=== PATIENT | female | born 1965 | race Caucasian/White ===

== ENCOUNTER 2019-11-08 08:31 | Outpatient (CLI) | payer OTHER, SELFPAY ==
--- NOTE | 2019-11-26 08:42 | WPDHOLTEREM ---
Holter/Event Monitor Holter/Event Monitor Date of procedure: 11/08/19 Procedure Type: 30 day event monitor Indications: Palpitations Conclusion: 1. 10 day event monitor between 11/08/19-11/26/19. There are 22 available transmissions for analysis. 2. Predominant rhythm is sinus rhythm. HR range 41-139 bpm; average HR 75 bpm. 3. There are occasional premature supraventricular complexes with total burden 1%. No supraventricular tachycardia. 4. There are occasional premature ventricular complexes with total burden 1%. There is 1 episode of ventricular tachycardia at 107 bpm lasting 6 beats on 11/13/19 at 22:24. 5. No significant pauses greater than 2 seconds. 6. Patient reports 8 episodes of symptoms of lightheadedness, heart racing, dizziness and symptoms other than listed which demonstrate sinus rhythm, HR range 67-103 bpm with episodes of premature ventricular complexes each time.
== END 2019-11-08 08:32 | disposition home or self-care (01) ==
PROVIDERS: PCP Internal Medicine; Visit Provider Internal Medicine
DX: R00.2 Palpitations (principal)
CPT/HCPCS: 99199

== ENCOUNTER 2019-11-29 14:26 | Outpatient (CLI) | payer OTHER, SELFPAY ==
--- NOTE | ~2019-11-29 | MM_ITS ---
EXAMINATION: MM screening [facility] BI w francesca HISTORY: Screening mammogram TECHNIQUE: Craniocaudal and mediolateral oblique 3-D tomosynthesis images were obtained and synthetic 2-D images were generated. CAD analysis was submitted and interpreted. COMPARISON: 09/14/2018 postbiopsy mammogram 08/31/2018 diagnostic bilateral digital mammogram 01/12/2016 bilateral digital BREAST PARENCHYMAL COMPOSITION: The breasts are heterogeneously dense, which may obscure small masses . FINDINGS: There is a biopsy marker on the left. Occasional benign calcifications. There is no evidenc e of suspicious mass, calcification, or architectural distortion to suggest malignancy in either [address]. There has been no suspicious interval change. IMPRESSION: 1. No mammographic evidence of malignancy. 2. Recommend routine screening mammography in one year. BI-RADS Category 2: Benign finding(s). Reviewed, dictated and finalized at location A.
== END 2019-11-29 14:27 | disposition home or self-care (01) ==
LOC: CHSIMG 14:27
PROVIDERS: PCP Internal Medicine; Visit Provider Internal Medicine
DX: Z12.31 Encounter for screening mammogram for malignant neoplasm of breast (principal); I47.2 Ventricular tachycardia; I10 Essential (primary) hypertension
CPT/HCPCS: 77063; 77067; 93306

== ENCOUNTER 2021-02-05 09:01 | Outpatient (CLI) | payer OTHER, SELFPAY ==
--- NOTE | ~2021-02-05 | MM_ITS ---
EXAMINATION: MM screening [facility] BI w francesca HISTORY: Screening mammogram TECHNIQUE: Craniocaudal and mediolateral oblique 3-D tomosynthesis images were obtained and synthetic 2-D images were generated. CAD analysis was submitted and interpreted. COMPARISON: 11/29/2019, 08/31/2018, 01/12/2016 BREAST PARENCHYMAL COMPOSITION: The breasts are heterogeneously dense, which may obscure small masses . FINDINGS: There is no evidence of suspicious mass, calcification, or architectural distortion to sugg est malignancy in either breast. There has been no suspicious interval change. IMPRESSION: 1. No mammographic evidence of malignancy. 2. Recommend routine screening mammography in one year. BI-RADS Category 1: Negative Reviewed, dictated and finalized at location A.
== END 2021-02-05 09:02 | disposition home or self-care (01) ==
LOC: CHSIMG 09:02
PROVIDERS: PCP Internal Medicine; Visit Provider Internal Medicine
DX: Z12.31 Encounter for screening mammogram for malignant neoplasm of breast (principal)
CPT/HCPCS: 77063; 77067

== ENCOUNTER 2021-07-20 08:17 | Outpatient (CLI) | payer OTHER, SELFPAY ==
--- NOTE | ~2021-07-20 | DEXA_ITS ---
Bone Density Report Name: IMELDA HUSAIN Age: 56 Sex: Female Ethnicity: White Date of : 1965 Indication: postmenopausal; screening for osteoporosis; hysterectomy; Referring Provider: Edu Miller Study: Bone densitometry was performed. Exam Date: July 20, 2021 Accession number: [id number] Bone Density: Region BMD T-score Z-score Classification AP Spine(L1-L4) 0.991 -0.5 0.8 Normal Femoral Neck (Left) 0.822 -0.2 0.9 Normal Total Hip (Left) 1.062 1.0 1.8 Normal Femoral Neck (Right) 0.690 -1.4 -0.2 Osteopenia Total Hip (Right) 1.018 0.6 1.5 Normal Femoral Neck Mean 0.756 -0.8 0.4 Normal Total Hip Mean 1.040 0.8 1.6 Normal World Health Organization criteria for BMD impression classify patients as: Normal (T-score at or above -1.0), Osteopenia (T-score between -1.0 and -2.5), or Osteoporosis (T-score at or below -2.5). 10-year Fracture Risk(1): Major Osteoporotic Fracture 7.2% Hip Fracture 0.5% Reported Risk Factors: [place] (), Neck BMD=0.690, BMI=27.5 (1) FRAX(R) Version 3.08. Fracture probability calculated for an untreated patient. Fracture probability may be lower if the patient has received treatment. Clinical Information Provided by Patient: Has the following medical conditions: Hysterectomy Patient maximum height was 63 Menopause Age: 38 No regular weight bearing exercise Does not regularly consume dairy products Drinks caffeinated beverages Onset of menses at age 10 Number of children 2 Impression: The patient has low bone mass, based on the Right Femoral Neck T-score. Discussion: BONE DENSITY IS LOW AT ONE OR MORE SKELETAL SITES. This patient's lowest T-score is low at one or more skeletal sites. It meets the World Health Organization's (WHO) criteria for ?low bone mass? (T-score between -1.0 and -2.5). The patient's 10-year risk of fracture as calculated by FRAX is less than the threshold where pharmacological therapy is recommended by the National Osteoporosis Foundation (NOF). However, all treatment decisions require clinical judgment and consideration of individual patient factors, including patient preferences, comorbidities, previous drug use, risk factors not captured in the FRAX model (e.g., frailty, falls, vitamin D deficiency, increased bone turnover, interval significant decline in bone density) and possible under or overestimation of fracture risk by FRAX. The patient should follow a healthful lifestyle (good nutrition with adequate calcium and vitamin D, and appropriate weight-bearing exercise). Follow-Up: Consider repeating this study in 2 to 3 years to reassess this patient's status, or sooner if there is some new clinical indication. Reported by: Dr. Angel Ch on 07/20/2021 8:39:00 AM.
== END 2021-07-20 08:18 | disposition home or self-care (01) ==
LOC: CHSIMG 08:18
PROVIDERS: PCP Internal Medicine; Visit Provider Internal Medicine
DX: M81.0 Age-related osteoporosis without current pathological fracture (principal)
CPT/HCPCS: 77080

== ENCOUNTER 2021-07-27 11:41 | Emergency (ER) | payer OTHER, SELFPAY ==
--- NOTE | ~2021-07-27 | XR_ITS ---
EXAMINATION: XR chest 2V DATE: 07/27/2021 13:45 INDICATION: Nausea, vomiting, diarrhea TECHNIQUE: Frontal and lateral views of the chest are obtained COMPARISON: None available FINDINGS: The lungs are free of acute opacities. There is no pleural effusion or pneumothorax. The ca rdiomediastinal silhouette is normal. There is mild thoracic spondylosis. Surgical clips in the right upper quadrant are likely from prior cholecystectomy. IMPRESSION: 1. No acute cardiopulmonary abnormality. Reviewed, dictated and finalized at location A.
--- NOTE | ~2021-07-27 | CT_ITS ---
EXAMINATION: CT abdomen pelvis w con DATE: 07/27/2021 13:38 INDICATION: Nausea and vomiting. TECHNIQUE: Computed tomography (CT) of the abdomen and pelvis was performed with 100 mL Omnipaque 350 intravenous contrast. Automated exposure control and iterative reconstruction technique were employe d. The dose-length product was 503.13 mGy-cm. COMPARISON: None. FINDINGS: The visualized portions of the lung bases demonstrate mild atelectasis in right lower lobe. A calcified right lung nodule is consistent with old granulomatous disease. No pleural effusion. The heart size is normal. No pericardial effusion. The liver and spleen are normal. There are changes of cholecystectomy. The pancreas and adrenal glands are normal. There is a 5 mm cyst in right kidney. L eft kidney is normal. The bladder is distended. There are no dilated loops of bowel. The appendix is normal. There are no pathologically enlarged lymph nodes. There is no free intraperitoneal fluid. The re is mild thoracic spondylosis and moderate lumbar spondylosis. IMPRESSION: 1. No etiology for the patient's symptoms. Reviewed, dictated and finalized at location A.
--- NOTE | 2021-07-27 12:11 | ECG_ITS ---
Measurements Intervals Thorp Rate: 66 P: 13 WA: 145 QRS: 28 QRSD: 93 T: 29 QT: 377 QTc: 395 Interpretive Statements SINUS RHYTHM WITH OCCASIONAL VENTRICULAR PREMATURE COMPLEXES NONSPECIFIC T-WAVE ABNORMALITY BORDERLINE ECG NO PREVIOUS ECG AVAILABLE FOR COMPARISON Electronically Signed On 07-27-2021 13:21:55 CDT by Lincoln Foss M.D.
[2021-07-27] MEDS: ONDANSETRON INJ 4 MG/2 ML VIAL IV PUSH ×2 (12:21→13:54)
[2021-07-27 12:22] VITALS: BP 152/95; PULSE 77; RESP 20; TEMP 36.8; O2SAT 97
--- NOTE | 2021-07-27 12:42 | ED.DIZZY ---
HPI - Dizziness General Chief Complaint: Dizziness Stated Complaint: Vomiting/Dizzy/headache Time Seen by Provider: 07/27/21 13:50 Source: patient and family Mode of arrival: wheelchair History of Present Illness HPI Narrative: this is a 56-year-old female with history of bipolar disease presents from her doctor's office with episodes of nausea vomiting and dizziness, denies any diarrhea or constipation there is no dysuria no hematuria no fever chills no shortness of breath or chest pain. Patient feels dizzy with no syncopal episode no blurry vision and mild headache. MD elicited complaint: dizziness Onset (ago): hour(s) Timing: sudden onset Severity: moderate Description: sense of movement Context: anxiety Relieving factors: remaining still Associated symptoms: nausea and vomiting Related Data Home Medications Medication Instructions Recorded Confirmed bupropion HCl 150 mg PO DAILY 07/27/21 07/27/21 divalproex 250 mg PO BID 07/27/21 07/27/21 levothyroxine 100 mcg PO DAILY 07/27/21 07/27/21 lisinopril 10 mg PO DAILY 07/27/21 07/27/21 pravastatin 40 mg PO DAILY 07/27/21 07/27/21 pregabalin 50 mg PO BID 07/27/21 07/27/21 trazodone 50 mg PO HS 07/27/21 07/27/21 Allergies Allergy/AdvReac Type Severity Reaction Status Date / Time No Known Allergies Allergy Verified 07/27/21 12:32 Review of Systems Review of Systems: All systems reviewed & are unremarkable except as noted in HPI and below PMFSH Past Medical History Medical History Bipolar disease during Family History Family History Other Diabetes mellitus Hypertension Exam Const: General: no acute distress Orientation/consciousness: patient oriented x3 HENMT: Head: normal to inspection Eyes: Conjunctivae: conjunctivae normal Pupils: Equal, round and reactive pupils present Direct Ophthalmoscopy: no photophobia Neck: Neck: normal visual inspection, no lymphadenopathy and no meningeal signs Chest: Chest palpation & inspection: normal inspection of the chest Resp: Effort & Inspection: normal respiratory effort Auscultation: clear to auscultation bilaterally Cardio: Rate: regular rate Rhythm: regular rhythm GI: Auscultation: normal bowel sounds : General: Yes no CVA tenderness Urinary Catheter: Urinary Catheter: patent and draining Back/Spine/Pelvis: Back: no CVA tenderness Skin: General skin exam: normal color Rashes: no rashes Neuro: General: patient oriented x3, moves all extremities, no meningeal signs and no focal motor deficits Extrem: General: normal to inspection and no pedal edema Psych: Affect: Anxious affect present Course Course Emergency Course: patient had labs and x-rays along with CT scan of abdomen that we reviewed with patient, the patient was started on IV fluids given Zofran and meclizine and after reassessment the patient's symptoms have improved. Vital Signs Vital signs: Vital Signs Temperature 36.8 C 07/27/21 12:22 Pulse Rate 77 07/27/21 12:22 Respiratory Rate 20 07/27/21 12:22 Blood Pressure 152/95 H 07/27/21 12:22 Pulse Oximetry 97 07/27/21 12:22 Temperature 36.8 C 07/27/21 12:22 Pulse Rate 77 07/27/21 12:22 Respiratory Rate 20 07/27/21 12:22 Blood Pressure 152/95 H 07/27/21 12:22 Pulse Oximetry 97 07/27/21 12:22 MDM - Dizziness Lab Data Result diagrams: 07/27/21 12:15 07/27/21 12:15 Labs: Lab Results 07/27/21 07/27/21 07/27/21 Range/Units 12:15 12:15 14:07 WBC 6.1 (4.8-10.8) K/mm3 RBC 4.81 (4.20-5.40) M/mm3 Hgb 14.7 (12.0-15.0) g/dL Hct 43.4 (35.0-49.0) % MCV 90.2 (78.0-102.0) fL MCH 30.6 (27.0-31.0) pg MCHC 33.9 (32.0-36.0) g/dL RDW 11.6 (11.6-14.4) % Plt Count 281 (150-420) K/mm3 MPV 11.0 (9.2-11.8) fl Immature Gran % (Auto) 0.3 H (0.0-0.0)
[2021-07-27 12:46] LABS: Basophils Absolute Auto 0.04 K/mm3 (0.00-0.10); Basophils Percent Auto 0.7 % (0.0-1.0); Eosinophils Absolute Auto 0.12 K/mm3 (0.02-0.50); Hematocrit 43.4 % (35.0-49.0); Hemoglobin 14.7 g/dL (12.0-15.0); Immature Granulocyte Absolute 0.02 K/mm3 (0.00-0.00); Immature Granulocyte Percent A 0.3 % (0.0-0.0); Lymphocytes Absolute Auto 2.26 K/mm3 (1.10-4.50); Lymphocytes Percent Auto 36.8 % (18.0-42.0); Mean Corpuscular HGB Conc 33.9 g/dL (32.0-36.0); Mean Corpuscular Hemoglobin 30.6 pg (27.0-31.0); Mean Corpuscular Volume 90.2 fL (78.0-102.0); Monocytes Absolute Auto 0.68 K/mm3 (0.10-0.90); Monocytes Percent Auto 11.1 % (2.0-11.0); Neutrophils Percent Auto 49.1 % (50.0-70.0); Platelet Count Result 281 K/mm3 (150-420); Red Blood Count 4.81 M/mm3 (4.20-5.40); Red Cell Distribution Width 11.6 % (11.6-14.4); White Blood Count 6.1 K/mm3 (4.8-10.8)
[2021-07-27] MEDS: SODIUM CHLORIDE 0.9% IV 1,000 ML 999 ML IV CONT (12:48)
[2021-07-27] MEDS: MECLIZINE HCL 25 MG TABLET PO (12:49)
[2021-07-27 13:03] LABS: Alanine Aminotransferase 29 U/L (14-59); Alkaline Phosphatase 60 U/L (46-116); Anion Gap 13 mmol/L (8-16); Aspartate Amino Transferase 21 U/L (15-37); Bilirubin,Total 0.4 mg/dL (0.00-1.00); Blood Urea Nitrogen 9 mg/dL (7-18); Calcium 9.2 mg/dL (8.5-10.1); Carbon Dioxide 25 mmol/L (21-32); Chloride 102 mmol/L (98-108); Estimated CRCL calculation 67 ml/min; Estimated Glomerular Filt Rate > 60; Glucose 85 mg/dL (70-99); Lipase 91 U/L (73-393); Osmolality Calculated 287 mOsm/kg (285-295); Potassium 3.6 mmol/L (3.5-5.1); Sodium 140 mmol/L (136-145); Total Protein 7.7 g/dL (6.4-8.2)
[2021-07-27] MEDS: KETOROLAC 30 MG/ML VIAL (*BKC) IV PUSH (13:53)
[2021-07-27 14:10] LABS: Appearance Urine Clear (Clear); Bilirubin Urine Negative (Negative); Color Urine Light Yellow (Yellow); Glucose Urine UA Negative (Negative); Ketones Urine Negative (Negative); Leukocyte Esterase Ur Negative (Negative); Nitrate Urine Negative (Negative); Protein Urine Negative (Negative); Specific Grav Ur <= 1.005 (1.010-1.020); Urobilinogen Urine 0.2 mg/dL (0.2-1.0); pH Urine 6.5 (5.0-8.0)
[2021-07-27 14:16] LABS: Add Urine Microscopic? YES; Bacteria Urine None seen /hpf; Blood Urine Trace-lysed (Negative); RBC Urine None seen /hpf (0-2); Squamous Epithelial Cell Urine Rare /hpf (Few); WBC Urine None seen /hpf (0-3)
[2021-07-27 15:20] VITALS: BP 146/80; PULSE 66; RESP 20; TEMP 36.8; O2SAT 97
== END 2021-07-27 15:39 | disposition home or self-care (01) ==
PROVIDERS: Emergency Provider Emergency Medicine; PCP Internal Medicine
DX: R42 Dizziness and giddiness (principal); J01.10 Acute frontal sinusitis, unspecified; R11.2 Nausea with vomiting, unspecified
CPT/HCPCS: 36415; 71046; 74177; 80053; 81001; 83690; 85025; 87040; 93005; 96361; 96374; 96375; 96376; 99284; A9270; J1885; J2405; J7030; Q9967

== ENCOUNTER 2022-02-08 07:55 | Outpatient (CLI) | payer OTHER, SELFPAY ==
--- NOTE | ~2022-02-08 | MM_ITS ---
EXAMINATION: MM screening [facility] BI w francesca HISTORY: Screening TECHNIQUE: Craniocaudal and mediolateral oblique 3-D tomosynthesis images were obtained and synthetic 2-D images were generated. CAD analysis was submitted and interpreted. COMPARISON: Comparison to multiple prior studies sequentially, with oldest reviewed study dated 08/2014. BREAST PARENCHYMAL COMPOSITION: The breasts are heterogeneously dense, which may obscure small masses FINDINGS: There is no evidence of suspicious mass, calcification, or architectural distortion to sugg est malignancy in either breast. There has been no suspicious interval change. IMPRESSION: 1. No mammographic evidence of malignancy. 2. Recommend routine screening mammography in one year. BI-RADS Category 1: Negative Reviewed, dictated and finalized at location A.
== END 2022-02-08 07:56 | disposition home or self-care (01) ==
LOC: CHSIMG 07:57
PROVIDERS: PCP Internal Medicine; Visit Provider Internal Medicine
DX: Z12.31 Encounter for screening mammogram for malignant neoplasm of breast (principal)
CPT/HCPCS: 77063; 77067

== ENCOUNTER 2022-06-07 12:23 | Outpatient (CLI) | payer BC, SELFPAY ==
[2022-06-07 12:41] LABS: Basophils Absolute Auto 0.03 K/mm3 (0.00-0.10); Basophils Percent Auto 0.6 % (0.0-1.0); Eosinophils Absolute Auto 0.05 K/mm3 (0.02-0.50); Hematocrit 40.5 % (35.0-49.0); Hemoglobin 13.5 g/dL (12.0-15.0); Immature Granulocyte Absolute 0.01 K/mm3 (0.00-0.00); Immature Granulocyte Percent A 0.2 % (0.0-0.0); Lymphocytes Absolute Auto 1.98 K/mm3 (1.10-4.50); Lymphocytes Percent Auto 37.9 % (18.0-42.0); Mean Corpuscular HGB Conc 33.3 g/dL (32.0-36.0); Mean Corpuscular Hemoglobin 30.5 pg (27.0-31.0); Mean Corpuscular Volume 91.6 fL (78.0-102.0); Mean Platelet Volume 10.5 fl (9.2-11.8); Monocytes Absolute Auto 0.46 K/mm3 (0.10-0.90); Monocytes Percent Auto 8.8 % (2.0-11.0); Neutrophils Absolute Auto 2.7 K/mm3 (1.7-7.2); Neutrophils Percent Auto 51.5 % (50.0-70.0); Platelet Count Result 241 K/mm3 (150-420); Red Blood Count 4.42 M/mm3 (4.20-5.40); Red Cell Distribution Width 11.9 % (11.6-14.4); White Blood Count 5.2 K/mm3 (4.8-10.8)
[2022-06-07 12:57] LABS: Hemoglobin A1C 5.5 % (<5.7)
[2022-06-07 13:31] LABS: Alanine Aminotransferase 14 U/L (14-59); Albumin Level 3.9 g/dL (3.4-5.0); Alkaline Phosphatase 62 U/L (46-116); Anion Gap 7 mmol/L (8-16); Aspartate Amino Transferase 11 U/L (15-37); Bilirubin,Total 0.6 mg/dL (0.00-1.00); Blood Urea Nitrogen 13 mg/dL (7-18); Carbon Dioxide 30 mmol/L (21-32); Chloride 102 mmol/L (98-108); Cholesterol 196 mg/dL (0-200); Estimated Glomerular Filt Rate > 60; Folic Acid 19.4 ng/mL (8.6->20); Glucose 90 mg/dL (70-99); HDL Direct 66 mg/dL (40-60); LDL Cholesterol Calculated 97 mg/dL (<130); Osmolality Calculated 288 mOsm/kg (285-295); Potassium 4.1 mmol/L (3.5-5.1); Sodium 139 mmol/L (136-145); Total Protein 7.2 g/dL (6.4-8.2); Triglycerides 164 mg/dL (0-150); Vitamin B12 545 pg/mL (193-986)
[2022-06-07 13:33] LABS: Thyroid Stimulating Hormone Reflex 0.44 u/IU/mL (0.36-3.74)
[2022-06-09 11:42] LABS: Valproic Acid 61.9 mg/L (50.0-100.0)
[2022-06-09 13:31] LABS: Insulin Level Total 4.6 uIU/mL (<=19.6)
[2022-06-10 17:23] LABS: Vitamin D 25 Hydroxy 33 ng/mL (30-100)
== END 2022-06-07 12:24 | disposition home or self-care (01) ==
LOC: CHSLAB 12:28
PROVIDERS: PCP Internal Medicine; Visit Provider Psychiatry & Neurology Psychiatry
DX: F10.20 Alcohol dependence, uncomplicated (principal); E78.5 Hyperlipidemia, unspecified; E53.8 Deficiency of other specified B group vitamins; E55.9 Vitamin D deficiency, unspecified; E03.9 Hypothyroidism, unspecified; Z79.899 Other long term (current) drug therapy
CPT/HCPCS: 36415; 80053; 80061; 80164; 82306; 82607; 82746; 83036; 83525; 84443; 85025

== ENCOUNTER 2022-09-05 11:22 | Outpatient (CLI) | payer BC, SELFPAY ==
--- NOTE | ~2022-09-05 | XR_ITS ---
EXAMINATION: XR hand LT min 3V DATE: 09/05/2022 11:39 INDICATION: Left hand third digit cellulitis and pain. TECHNIQUE: 3 views of left hand were obtained. COMPARISON: None. FINDINGS: Bone alignment is normal. No fracture. There is mild osteoarthrosis of first carpometacarpa l joint, second metacarpophalangeal joint, and some of the interphalangeal joints. IMPRESSION: 1. No evidence of osteomyelitis. 2. Polyarticular osteoarthritis. Reviewed, dictated and finalized at location A.
== END 2022-09-05 11:23 | disposition home or self-care (01) ==
LOC: CHSIMG 11:24
PROVIDERS: PCP Internal Medicine; Visit Provider Internal Medicine
DX: L03.012 Cellulitis of left finger (principal); M19.042 Primary osteoarthritis, left hand
CPT/HCPCS: 73130

== ENCOUNTER 2022-09-09 06:50 | Outpatient (CLI) | payer BC, SELFPAY ==
--- NOTE | ~2022-09-09 | MR_ITS ---
MRI of the left hand CLINICAL HISTORY: Cellulitis of left third finger TECHNIQUE: Axial proton-density, proton-density fat-sat, and T1 fat-sat images, coronal proton-densit y and proton-density fat-sat images, and sagittal proton-density and proton-density fat-sat images we re performed. Following intravenous administration of 12 cc MultiHance gadolinium, T1-weighted fat-sa t imaging was performed in the axial, coronal, and sagittal planes. FINDINGS: Bone marrow signals are unremarkable. No fracture, marrow edema, or evidence for osteitis. Joint spaces appear intact. No joint effusion seen. Visualized collateral ligaments appear intact. Flexor and extensor tendons are intact. Visualized muscles demonstrate normal signal intensity. There is minimal soft tissue edema about the distal third digit flexor tendon, with mild postcontrast enha ncement. No abscess. IMPRESSION: Findings consistent with cellulitis/soft tissue infection predominantly at the distal, flexor aspect of the third digit. No abscess or osteomyelitis. Reviewed, dictated and finalized at [facility].
== END 2022-09-09 06:51 | disposition home or self-care (01) ==
LOC: CHSIMG 06:51
PROVIDERS: PCP Internal Medicine; Visit Provider Internal Medicine
DX: L03.012 Cellulitis of left finger (principal)
CPT/HCPCS: 73220; A9577

== ENCOUNTER 2023-02-10 08:17 | Outpatient (CLI) | payer BC, SELFPAY ==
--- NOTE | ~2023-02-10 | MM_ITS ---
EXAMINATION: MM screening [facility] BI w francesca HISTORY: Screening mammogram TECHNIQUE: Craniocaudal and mediolateral oblique 3-D tomosynthesis images were obtained and synthetic 2-D images were generated. CAD analysis was submitted and interpreted. COMPARISON: 02/08/2022, 02/05/2021, 11/29/2019 bilateral screening mammogram examinations BREAST PARENCHYMAL COMPOSITION: The breasts are heterogeneously dense, which may obscure small masses . FINDINGS: There are 2 biopsy markers on the left; history of prior benign left breast biopsy. Occasional benign calcifications. Stable mild fibroglandular asymmetry. There is no evidence of suspi cious mass, calcification, or architectural distortion to suggest malignancy in either breast. There has been no suspicious interval change. IMPRESSION: 1. No mammographic evidence of malignancy. 2. Recommend routine screening mammography in one year. BI-RADS Category 2: Benign finding(s). Reviewed, dictated and finalized at location A.
== END 2023-02-10 08:18 | disposition home or self-care (01) ==
LOC: CHSIMG 08:19
PROVIDERS: PCP Internal Medicine; Visit Provider Internal Medicine
DX: Z12.31 Encounter for screening mammogram for malignant neoplasm of breast (principal)
CPT/HCPCS: 77063; 77067

== ENCOUNTER 2023-03-10 08:26 | Outpatient (CLI) | payer BC, SELFPAY ==
[2023-03-13 17:51] LABS: Valproic Acid 57.3 mg/L (50.0-100.0)
== END 2023-03-10 08:27 | disposition home or self-care (01) ==
LOC: CHSLAB 08:31
PROVIDERS: PCP Internal Medicine
DX: Z79.899 Other long term (current) drug therapy (principal)
CPT/HCPCS: 36415; 80164

== ENCOUNTER 2023-11-17 01:49 | Day surgery (SDC) | payer BC, SELFPAY ==
[2023-11-02 12:57] VITALS: BMI 28.6
[2023-11-17 09:26] VITALS: BP 139/73; PULSE 78; RESP 18; TEMP 36.1; O2SAT 100
[2023-11-17] MEDS: LACTATED RINGERS 1,000 ML 150 ML IV CONT (09:37)
--- NOTE | 2023-11-17 10:10 | WPDANESEPPF ---
Anes - Initial Pre Proc Eval Procedure: Operation Date: 11/17/23 10:30 Proposed Procedures p Screening Colonoscopy - Edison Styles DO Date/Time: 11/17/23 10:10 Surgeon: Edison Styles DO Pre Op Diagnosis: Screening for malignant neoplasm of colon Patient Data Age: 58 Gender: F Height: 1.57 m Weight: 69.4 kg Last Vital Signs Temp 97 F L 11/17/23 09:26 Pulse 78 11/17/23 09:26 Resp 18 11/17/23 09:26 BP 139/73 11/17/23 09:26 Pulse Ox 100 11/17/23 09:26 O2 Del Method Room Air 11/17/23 09:26 Allergies Allergy/AdvReac Type Severity Reaction Status Date / Time No Known Allergies Allergy Verified 11/17/23 09:24 Home Medications Medication Instructions Recorded Confirmed Type levothyroxine 100 mcg tablet 100 mcg PO DAILY 07/27/21 11/02/23 History lisinopril 10 mg tablet 10 mg PO DAILY 07/27/21 11/02/23 History pregabalin 50 mg capsule 50 mg PO BID 07/27/21 11/02/23 History ezetimibe 10 mg tablet 10 mg PO DAILY 11/02/23 11/02/23 History triamterene 37.5 37.5 tablet PO DAILY 11/02/23 11/02/23 History mg-hydrochlorothiazide 25 mg tablet Patient hx anesthesia problems: none Family hx anesthesia problems: none Results Review: All pre-operative results and documents have been reviewed as part of the pre-operative evaluation. FORMERLY [facility], 1928–1983 Past Medical History Medical History Bipolar disease during Family History Family History Other Diabetes mellitus Hypertension Social History Social History (System 08/22/23 @ 16:23 by Lucas Silver) Substance use: current Substance use type: marijuana Other substance usage details: medicinal marijuana Living arrangements: with family Spiritual care concerns: No Anes - Eval Final PreProcedure Day of Procedure 11/17/23 10:10 Patient weight: normal Heart: regular rate and rhythm Lungs: clear to auscultation Airway: Mallampati scale class II Neurological: alert and oriented Last oral intake: >/= 8 hours ASA classification: III Emergent: no Anesthetic plan: proceed Anesthesia type and monitoring: general GIVS and standard monitoring Results Review: All pre-operative results and documents have been reviewed as part of the pre-operative evaluation. Informed Consent: The patient's anesthetic plan and its attendant risks and benefits were discussed with the patient/family/POA. Questions were solicited and answers provided to the satisfaction of the patient/family/POA.
--- NOTE | 2023-11-17 10:44 | PM.IMHP ---
H&P: HPI History of Present Illness Date/Time: 11/17/23 10:44 Chief Complaint: screening for colorectal cancer Narrative: this is a 58-year-old woman who presents for colonoscopy. Her last colonoscopy was 10 years ago. She denies any hematochezia or melena. She denies any first-degree family members with colon cancer but had a great grandmother that had colon cancer. Review of Systems Review of Systems: All systems reviewed & are unremarkable except as noted in HPI and below Constitutional: Constitutional: Denies chills, Denies fever(s), Denies headache(s) and Denies weight loss Eyes: Eyes: Denies change in vision ENT: Denies dizziness, Denies headache(s), Denies neck mass and Denies throat swelling Cardiovascular: Cardiovascular: Denies chest pain, Denies lightheadedness and Denies dyspnea Respiratory: Respiratory: Denies cough, Denies dyspnea and Denies wheezing Gastrointestinal: Gastrointestinal: Denies abdominal pain, Denies change in bowel habits, Denies nausea and Denies vomiting Genitourinary: Genitourinary: Denies hematuria and Denies dysuria Musculoskeletal: Musculoskeletal: Reports as per HPI Integumentary/Breasts: Skin/Breast: Reports as per HPI Neurologic: Denies dizziness and Denies headache(s) Allergic/Immunologic: Allergic/Immunologic: Denies throat swelling and Denies wheezing PMF Past Medical History Medical History Bipolar disease during Family History Family History Other Diabetes mellitus Hypertension Social History Social History (System 08/22/23 @ 16:23 by Lucas Silver) Substance use: current Substance use type: marijuana Other substance usage details: medicinal marijuana Living arrangements: with family Spiritual care concerns: No Meds Home Medications and Allergies Home Medications Medication Instructions Recorded Confirmed Type levothyroxine 100 mcg tablet 100 mcg PO DAILY 07/27/21 11/02/23 History lisinopril 10 mg tablet 10 mg PO DAILY 07/27/21 11/02/23 History pregabalin 50 mg capsule 50 mg PO BID 07/27/21 11/02/23 History ezetimibe 10 mg tablet 10 mg PO DAILY 11/02/23 11/02/23 History triamterene 37.5 37.5 tablet PO DAILY 11/02/23 11/02/23 History mg-hydrochlorothiazide 25 mg tablet Allergies Allergy/AdvReac Type Severity Reaction Status Date / Time No Known Allergies Allergy Verified 11/17/23 09:24 Vital Signs Vital Signs - 24 hr 11/17/23 09:26 Temperature 36.1 C L Pulse Rate 78 Respiratory Rate 18 Blood Pressure 139/73 Pulse Oximetry 100 Oxygen Delivery Room Air Exam Const: General: no acute distress and alert Orientation/consciousness: patient oriented x3 HENMT: Head: normocephalic and atraumatic Ears: hearing grossly normal bilaterally Face/Nose/Sinus: Normal nares present Mouth: Yes Normal oral and palatal mucosa present Eyes: Periorbital: periorbital findings normal Sclera: sclerae normal EOM: EOMs intact bilaterally Neck: Neck: normal visual inspection, no lymphadenopathy and trachea midline Chest: Chest palpation & inspection: normal inspection of the chest Resp: Effort & Inspection: normal respiratory effort Auscultation: clear to auscultation bilaterally Cardio: Jugular venous distension: no JVD Rate: regular rate Rhythm: regular rhythm Heart sounds: S1 normal heart sound present and S2 normal heart sound present Peripheral pulses: Peripheral pulses 2+ throughout GI: Inspection: normal to inspection GI Palp: Yes Soft to palpation, No Tenderness to palpation present (GI), No Guarding due to palpation present (GI) and No Rebound tenderness present Percussion: Yes normal to percussion Auscultation: normal bowel sounds : General: Yes no CVA tenderness Back/Spine/Pelvis: Back: no CVA tenderness Neuro: General: patient oriented x3, no focal motor deficits and CN's II-XI
[2023-11-17 11:09] VITALS: BP 117/95; PULSE 68; RESP 20; O2SAT 100
[2023-11-17 11:19] VITALS: BP 99/44; PULSE 67; RESP 16; O2SAT 100
[2023-11-17 11:29] VITALS: BP 114/56; PULSE 60; RESP 16; O2SAT 100
== END 2023-11-17 11:45 | disposition home or self-care (01) ==
PROVIDERS: PCP Internal Medicine; Visit Provider Surgery
PROC: 0DJD8ZZ Inspection of Lower Intestinal Tract, Via Natural or Artificial Opening Endoscopic (ICD-10-PCS; CPT 45378; principal; 2023-11-17 10:30)
DX: Z12.11 Encounter for screening for malignant neoplasm of colon (principal); K57.30 Diverticulosis of large intestine without perforation or abscess without bleeding
CPT/HCPCS: 45378; J2704; J7120

== ENCOUNTER 2024-02-14 11:42 | Outpatient (CLI) | payer BC, SELFPAY ==
--- NOTE | ~2024-02-14 | MM_ITS ---
EXAMINATION: MM screening [facility] BI w francesca HISTORY: Screening TECHNIQUE: Craniocaudal and mediolateral oblique 3-D tomosynthesis images were obtained and synthetic 2-D images were generated. CAD analysis was submitted and interpreted. COMPARISON: Comparison to multiple prior studies sequentially, with oldest reviewed study dated 11/28. BREAST PARENCHYMAL COMPOSITION: Dense: The breasts are heterogeneously dense, which may obscure small masses FINDINGS: There is no evidence of suspicious mass, calcification, or architectural distortion to sugg est malignancy in either breast. There has been no suspicious interval change. IMPRESSION: 1. No mammographic evidence of malignancy. 2. Recommend routine screening mammography in one year. BI-RADS Category 1: Negative Reviewed, dictated and finalized at location B.
[2024-02-14 12:03] LABS: Basophils Absolute Auto 0.04 K/mm3 (0.00-0.10); Basophils Percent Auto 0.8 % (0.0-1.0); Eosinophils Absolute Auto 0.11 K/mm3 (0.02-0.50); Eosinophils Percent Auto 2.1 % (1.0-6.0); Hematocrit 39.5 % (35.0-49.0); Hemoglobin 13.5 g/dL (12.0-15.0); Immature Granulocyte Absolute 0.01 K/mm3 (0.00-0.00); Immature Granulocyte Percent A 0.2 % (0.0-0.0); Lymphocytes Percent Auto 37.9 % (18.0-42.0); Mean Corpuscular HGB Conc 34.2 g/dL (32-36); Mean Corpuscular Hemoglobin 30.2 pg (27.0-31.0); Mean Corpuscular Volume 88.4 fL (78.0-102.0); Monocytes Absolute Auto 0.66 K/mm3 (0.10-0.90); Monocytes Percent Auto 12.5 % (2.0-11.0); Neutrophils Absolute Auto 2.46 K/mm3 (1.70-7.20); Neutrophils Percent Auto 46.5 % (50.0-70.0); Platelet Count Result 312 K/mm3 (150-420); Red Blood Count 4.47 M/mm3 (4.20-5.40); Red Cell Distribution Width 11.9 % (11.6-14.4); White Blood Count 5.3 K/mm3 (4.8-10.8)
[2024-02-14 12:08] LABS: Add Urine Microscopic? YES; Appearance Urine Clear (Clear); Bilirubin Urine Negative (Negative); Blood Urine Negative (Negative); Color Urine Yellow (Yellow); Glucose Urine UA Negative (Negative); Ketones Urine Negative (Negative); Leukocyte Esterase Ur 1+ (Negative); Nitrate Urine Negative (Negative); Protein Urine Negative (Negative); Urobilinogen Urine 0.2 mg/dL (0.2-1.0); pH Urine 6.5 (5.0-8.0)
[2024-02-14 12:13] LABS: Hemoglobin A1C 5.6 % (<5.7)
[2024-02-14 12:16] LABS: RBC Urine None seen /hpf (0-2); Squamous Epithelial Cell Urine Few /hpf (Few); WBC Urine 0-3 /hpf (0-3)
[2024-02-14 12:17] LABS: Bacteria Urine Trace /hpf
[2024-02-14 13:27] LABS: Alanine Aminotransferase 24 U/L (14-59); Albumin Level 3.9 g/dL (3.4-5.0); Alkaline Phosphatase 79 U/L (46-116); Anion Gap 6 mmol/L (4-12); Aspartate Amino Transferase 20 U/L (15-37); Bilirubin,Total 0.6 mg/dL (0.00-1.00); Blood Urea Nitrogen 14 mg/dL (7-18); Calcium 9.5 mg/dL (8.5-10.1); Carbon Dioxide 31 mmol/L (21-32); Chloride 102 mmol/L (98-108); Cholesterol 226 mg/dL (0-200); Estimated Glomerular Filt Rate > 60; Free T3 2.64 pg/mL (2.18-3.98); Free T4 Free Thyroxine 1.24 ng/dL (0.76-1.46); Glucose 86 mg/dL (70-99); HDL Direct 57 mg/dL (40-60); LDL Cholesterol Calculated 138 mg/dL (<130); Osmolality Calculated 287 mOsm/kg (285-295); Sodium 139 mmol/L (136-145); Thyroid Stimulating Hormone 1.36 uIU/mL (0.36-3.74); Total Protein 7.3 g/dL (6.4-8.2); Triglycerides 155 mg/dL (0-150); Vitamin B12 773 pg/mL (193-986)
== END 2024-02-14 11:43 | disposition home or self-care (01) ==
PROVIDERS: PCP Internal Medicine; Visit Provider Internal Medicine
DX: I10 Essential (primary) hypertension (principal); E03.4 Atrophy of thyroid (acquired); E78.2 Mixed hyperlipidemia; I49.3 Ventricular premature depolarization; R73.01 Impaired fasting glucose; Z12.31 Encounter for screening mammogram for malignant neoplasm of breast
CPT/HCPCS: 36415; 77063; 77067; 80053; 80061; 81001; 82607; 83036; 84439; 84443; 84481; 85025

== ENCOUNTER 2024-07-06 07:49 | Outpatient (CLI) | payer OTHER, SELFPAY ==
--- NOTE | ~2024-07-06 | DEXA_ITS ---
Bone Density Report Name: IMELDA HUSAIN Age: 58 Sex: Female Ethnicity: White Date of : 1965 Indication: postmenopausal; screening for osteoporosis; hysterectomy; Referring Provider: Edu Miller Study: Bone densitometry was performed. Exam Date: July 06, 2024 Accession number: [id number] Bone Density: Region BMD T-score Z-score Classification AP Spine(L1-L4) 0.979 -0.6 0.9 Normal Femoral Neck (Left) 0.717 -1.2 0.1 Osteopenia Total Hip (Left) 0.993 0.4 1.4 Normal Femoral Neck (Right) 0.739 -1.0 0.3 Normal Total Hip (Right) 0.966 0.2 1.2 Normal Femoral Neck Mean 0.728 -1.1 0.2 Osteopenia Total Hip Mean 0.979 0.3 1.3 Normal World Health Organization criteria for BMD impression classify patients as: Normal (T-score at or above -1.0), Osteopenia (T-score between -1.0 and -2.5), or Osteoporosis (T-score at or below -2.5). 10-year Fracture Risk(1): Major Osteoporotic Fracture 7.5% Hip Fracture 0.5% Reported Risk Factors: [place] (), Neck BMD=0.717, BMI=27.8 (1) FRAX(R) Version 3.08. Fracture probability calculated for an untreated patient. Fracture probability may be lower if the patient has received treatment. Previous Exams: Region Exam Age BMD T-score BMD Change BMD Change Date g/cm2 vs Baseline vs Previous AP Spine (L1-L4) 07/06/2024 58 0.979 -0.6 -0.012 (-1.2%) -0.012 (-1.2%) 07/20/2021 56 0.991 -0.5 Total Hip(Left) 07/06/2024 58 0.993 0.4 -0.069 (-6.5%) -0.069 (-6.5%) 07/20/2021 56 1.062 1.0 Total Hip(Right) 07/06/2024 58 0.966 0.2 -0.052 (-5.1%) -0.052 (-5.1%) 07/20/2021 56 1.018 0.6 *Denotes significance at 95% confidence level, LSC for AP Spine = 0.022 g/cm2, LSC for Total Hip = 0.027 g/cm2 Clinical Information Provided by Patient: Has used the following medications: Vitamin D, multi Has the following medical conditions: Hysterectomy Patient maximum height was 63 Menopause Age: 38 No regular weight bearing exercise Drinks caffeinated beverages Onset of menses at age 9 Number of children 2 Impression: The patient has low bone mass, based on the Left Femoral Neck T-score. The BMD for the Total Hip(Left) decreased, changing by -6.5% since the last DXA exam. The BMD for the Total Hip(Right) decreased, changing by -5.1% since the last DXA exam. Discussion: BONE DENSITY IS LOW AT ONE OR MORE SKELETAL SITES. This patient's lowest T-score is low at one or more skeletal sites. It meets the World Health Organization's (WHO) criteria for ?low bone mass? (T-score between -1.0 and -2.5). The patient's 10-year risk of fracture as calculated by FRAX is less than the threshold where pharmacological therapy is recommended by the National Osteoporosis Foundation (NOF). However, all treatment decisions require clinical judgment and consideration of individual patient factors, including patient preferences, comorbidities, previous drug use, risk factors not captured in the FRAX model (e.g., frailty, falls, vitamin D deficiency, increased bone turnover, interval significant decline in bone density) and possible under or overestimation of fracture risk by FRAX. The patient should follow a healthful lifestyle (good nutrition with adequate calcium and vitamin D, and appropriate weight-bearing exercise). Follow-Up: Consider repeating this study in 2 years to reassess this patient's status, or sooner if there is some new clinical indication. Reported by: DAVID on 07/06/2024 8:13:00 AM. Reviewed, dictated and finalized at location [facility]
--- OUTSIDE RECORDS SUMMARY | 2024-07-06 08:00 | XMS_ITS | Referral Summary ---
Author Organization [facility] D Address [address] [place] [id number] Care Team Providers Care Aerospace Physiological Technician Name Role Phone Edu Miller MD Primary Care Provider + [phone] Encounters Date Type Department Care Team Description 07/05/2024 12:35 PM PRODUCT MANAGER E [employer]CE Ancillary Procedure [facility] Orthopaedic Surgery [address] [place] [address] 6th [place] [address] [place] [address] Arrived 07/05/2024 12:45 PM PRODUCT MANAGER E [employer]ERCE Procedure visit [address] 6th [place] [address] [place] [address] Rafael Jackson MD Paresthesia and pain of extremity; Left low back pain, unspecified chronicity, unspecified whether sciatica present 06/05/2024 10:40 AM PRODUCT MANAGER E [employer]ERCE Office Visit [facility] Orthopaedic Surgery [address] [facility] [address] [place] [phone] Austen Epperson MD Trochanteric bursitis of both hips (Primary Dx); Lumbar radiculopathy; Left low back pain, unspecified chronicity, unspecified whether sciatica present 05/30/2024 2:00 PM PRODUCT MANAGER E [employer] Office Visit [facility] Orthopaedic Surgery [address] [facility] 2nd [address] [place] [phone] Sarah Ruvalcaba NP Lumbar radiculopathy (Primary Dx); Left low back pain, unspecified chronicity, unspecified whether sciatica present 04/15/2024 9:08 AM PRODUCT MANAGER E [employer] - 04/15/2024 11:59 PM PRODUCT MANAGER E [employer] Hospital Encounter [facility] [address] [address] [place], [place] [address] Left low back pain, unspecified chronicity, unspecified whether sciatica present; Lumbar radiculopathy Discharge Disposition: Discharge to home or self care 04/15/2024 9:08 AM PRODUCT MANAGER E [employer] - 04/15/2024 11:59 PM PRODUCT MANAGER E [employer] Hospital Encounter [facility] [id number] [address] [place], [place] [address] Left low back pain, unspecified chronicity, unspecified whether sciatica present; Lumbar radiculopathy Discharge Disposition: Discharge to home or self care 04/10/2024 2:45 PM PRODUCT MANAGER E [employer] - 04/10/2024 11:59 PM PRODUCT MANAGER E [employer] Hospital Encounter [id number] [address] [facility] [address] [place] [address] Isi Landa MD Left low back pain, unspecified chronicity, unspecified whether sciatica present; Lumbar radiculopathy Discharge Disposition: Discharge to home or self care from Last 3 Months Allergies No known active allergies Medications lisinopriL (PRINIVIL,ZESTR IL) 10 mg tablet Take 1 tablet (10 mg total) by mouth daily 0 Active levothyroxine (SYNTHROID) 100 mcg tablet Take 1 tablet (100 mcg total) by mouth speech therapist early intervention before breakfast 1 Active multivitamin with minerals (Multiple Vitamin-Mineral s) tablet Take 1 tablet by mouth daily Active UNABLE TO FIND Med Name: medical marijuana Active pregabalin (Lyrica) 50 mg capsuleIndicati ons:Fibromyalgi a Take 1 capsule (50 mg total) by mouth 2 (two) times a day 60 capsule 5 1 Active ezetimibe (ZETIA) 10 mg tablet 5 Active Active Problems Problem Noted Date Diagnosed Date Sporotrichosis 11/04/2022 Infection of finger 10/12/2022 Pain of left hand 09/28/2022 Encounter for cosmetic surgery 07/30/2020 Overview (07/30/2020): Added automatically from request for surgery [id number] Palpitations 12/07/2019 Premature ventricular contractions 12/07/2019 Immunizations Immunization Administration Dates Next Due Influenza, Quadrivalent, Split, Intramuscular ,02/14/2015 Influenza, Quadrivalent, Spl it, Preservative Free, Intramuscular 03/13/2020,02/23/2018 Influenza, Trivalent, IM (MDV) 01/06/2017 nDreams (J&J) SARS-CoV-2 Vaccination 08/07/2020 Pneumococcal Conjugate PCV 13 11/28/2014 Tdap 11/28/2014 ZOSTER Recombinant 03/13/2020,11/02/2019 Social History Tobacco Use Types Packs/Day Years Used Date Smoking Tobacco: Former Cigarettes 0 07/30/1999 - 07/30/2019 Smokeless Tobacco: Never Comments:casual smoker Comments Unknown Sex and Gender Information Value Date Recorded Sex Assigned at Not on file Legal Sex Female 6:24 AM PRODUCT MANAGER E [employer] Gender Identity Not on file Sexual Orientation Not on file Last Filed Vital Signs Vital Sign Reading Time Taken Comments Blood Pressure 122/68 10/29/2020 3:28 PM CDT Pulse 71 10/29/2020 3:28 PM CDT Temperature 36.8 C (98.3 F) 10/29/2020 3:28 PM CDT Respiratory Rate 14 10/29/2020 3:28 PM CDT Oxygen Saturation 96% 10/29/2020 3:28 PM CDT Inhaled Oxygen Concentration - - Weight 73.1 kg (161 lb 3.2 oz) 06/05/2024 10:46 AM PRODUCT MANAGER E [employer]ERCE Height 158 cm (5' 2.2 ) 06/05/2024 10:46 AM PRODUCT MANAGER E [employer]ERCE Body Mass Index 29.29 06/05/2024 10:46 AM PRODUCT MANAGER E [employer]CE Plan of Treatment Not on file Procedures Procedure Name Priority Date/Time Associated Diagnosis Comments POCUS SOFT TISSUE OF THE UPPER OR LOWER EXTREMITY Schedule Routine, Read Routine (OP Routine) 07/05/2024 12:33 PM PRODUCT MANAGER E [employer]ERCE Paresthesia and pain of extremity Left low back pain, unspecified chronicity, unspecified whether sciatica present MRI CERVICAL SPINE WO CONTRAST Schedule Routine, Read Routine (OP Routine) 04/15/2024 10:03 AM PRODUCT MANAGER E [employer]CE Left low back pain, unspecified chronicity, unspecified whether sciatica present Lumbar radiculopathy MRI THORACIC SPINE WO CONTRAST Schedule Routine, Read Routine (OP Routine) 04/15/2024 10:03 AM PRODUCT MANAGER E [employer]ERCE Left low back pain, unspecified chronicity, unspecified whether sciatica present Lumbar radiculopathy TRANSFORAMINAL EPIDURAL INJECTION LUMBAR SACRAL FIRST LEVEL BILATERAL Schedule Routine, Read Routine (OP Routine) 04/10/2024 4:11 PM PRODUCT MANAGER E [employer]CE Left low back pain, unspecified chronicity, unspecified whether sciatica present Lumbar radiculopathy HEPATITIS C ANTIBODY Routine 08/06/2020 2:16 PM CDT Elevated antinuclear antibody (ALFREDO) level from Last 3 Months or Most Recently Relevant to Health Maintenance Results * POCUS Soft Tissue of the Upper or Lower Extremity (07/05/2024 12:33 PM PRODUCT MANAGER E [employer]CE) Narrative [facility] - 07/05/2024 12:33 PM PRODUCT MANAGER E [employer]ERCE This procedure was performed and interpreted by the provider. Please refer to the provider's procedure/OR operative note for results. us Rafael Jackson MD POCUS ORDERABLES Final R esult [facility] * MRI Cervical Spine WO Contrast (04/15/2024 10:03 AM PRODUCT MANAGER E [employer]ERCE) Anatomical Region Laterality Modality Spine N/A Magnetic Resonan ce 04/15/2024 11:3 1 AM PRODUCT MANAGER E COMMERCE Impressions 04/15/2024 11:31 AM PRODUCT MANAGER E [employer]ERCE Cervical and thoracic spinal cord signal intensity is normal. There is no compressing lesions in the spinal canal compressing the spinal cord to explain myelopathy. There is minimal degenerative changes in the cervical and thoracic spine. Electronically signed by: Karin Kam M.D. Narrative 04/15/2024 11:31 AM PRODUCT MANAGER E [employer]CE EXAMINATION: 1. Magnetic resonance imaging (MRI) of the cervical spine without contrast 2. Magnetic resonance imaging (MRI) of the thoracic spine without contrast HISTORY: Myelopathy and loss of balance TECHNIQUE: Multiplanar multi-weighted MRI of the cervical spine was performed without intravenous contrast using the standard protocol. Multiplanar multi-weighted MRI of the thoracic spine was performed without intravenous contrast using the standard protocol. COMPARISON: Lumbar spine MRI 03/25/2024 FINDINGS: CERVICAL SPINE: The alignment of the cervical spine is normal. Vertebral bodies demonstrate normal signal intensity on all sequences. No acute fracture is identified. The craniocervical junction is normal. The visualized portions of the skull base and the posterior fossa are normal. The spinal cord demonstrates normal signal intensity on all sequences. Intervertebral disks have normal height and signal intensity. There is an annular fissure at C6-C7 in the setting of a small disc protrusion. No soft tissue abnormality is identified. Normal signal voids are present in the vertebral arteries. Axial images show a left central disc protrusion at C3-C4 which touches the left ventral nerve root. A small central disc protrusion is present at C6-C7 without significant canal or foraminal stenosis. No canal or foraminal stenosis is seen elsewhere in the cervical spine. THORACIC SPINE: The alignment of the thoracic spine is normal. Vertebral bodies demonstrate normal signal intensity on all sequences. There are no compression fractures. The spinal cord demonstrates normal signal intensity on all sequences. Intervertebral disks have normal height and signal intensity. Limited views of the chest and abdomen show no soft tissue abnormality. The aorta is normal. The disks are normal in configuration. There is moderate facet arthropathy on the right at T11-T12. Facets are otherwise normal. There is no neuroforaminal stenosis. There is a prominent left perineural cyst at T9-T10. There is no spinal canal stenosis. Procedure Note Karin Kam MD - 04/15/2024 EXAMINATION: 1. Magnetic resonance imaging (MRI) of the cervical spine without contrast 2. Magnetic resonance imaging (MRI) of the thoracic spine without contrast HISTORY: Myelopathy and loss of balance TECHNIQUE: Multiplanar multi-weighted MRI of the cervical spine was performed without intravenous contrast using the standard protocol. Multiplanar multi-weighted MRI of the thoracic spine was performed without intravenous contrast using the standard protocol. COMPARISON: Lumbar spine MRI 03/25/2024 FINDINGS: CERVICAL SPINE: The alignment of the cervical spine is normal. Vertebral bodies demonstrate normal signal intensity on all sequences. No acute fracture is identified. The craniocervical junction is normal. The visualized portions of the skull base and the posterior fossa are normal. The spinal cord demonstrates normal signal intensity on all sequences. Intervertebral disks have normal height and signal intensity. There is an annular fissure at C6-C7 in the setting of a small disc protrusion. No soft tissue abnormality is identified. Normal signal voids are present in the vertebral arteries. Axial images show a left central disc protrusion at C3-C4 which touches the left ventral nerve root. A small central disc protrusion is present at C6-C7 without significant canal or foraminal stenosis. No canal or foraminal stenosis is seen elsewhere in the cervical spine. THORACIC SPINE: The alignment of the thoracic spine is normal. Vertebral bodies demonstrate normal signal intensity on all sequences. There are no compression fractures. The spinal cord demonstrates normal signal intensity on all sequences. Intervertebral disks have normal height and signal intensity. Limited views of the chest and abdomen show no soft tissue abnormality. The aorta is normal. The disks are normal in configuration. There is moderate facet arthropathy on the right at T11-T12. Facets are otherwise normal. There is no neuroforaminal stenosis. There is a prominent left perineural cyst at T9-T10. There is no spinal canal stenosis. IMPRESSION: Cervical and thoracic spinal cord signal intensity is normal. There is no compressing lesions in the spinal canal compressing the spinal cord to explain myelopathy. There is minimal degenerative changes in the cervical and thoracic spine. Electronically signed by: Karin Kam M.D. Sarah Ruvalcaba NP IM MRI PROCEDURES Final Result * MRI Thoracic Spine WO Contrast (04/15/2024 10:03 AM PRODUCT MANAGER E [employer]) Anatomical Region Laterality Modality Spine N/A Magnetic Resonan ce 04/15/2024 11:3 1 AM PRODUCT MANAGER E [employer]CE Impressions 04/15/2024 11:31 AM PRODUCT MANAGER E [employer]CE Cervical and thoracic spinal cord signal intensity is normal. There is no compressing lesions in the spinal canal compressing the spinal cord to explain myelopathy. There is minimal degenerative changes in the cervical and thoracic spine. Electronically signed by: Karin Kam M.D. Narrative 04/15/2024 11:31 AM PRODUCT MANAGER E [employer] EXAMINATION: 1. Magnetic resonance imaging (MRI) of the cervical spine without contrast 2. Magnetic resonance imaging (MRI) of the thoracic spine without contrast HISTORY: Myelopathy and loss of balance TECHNIQUE: Multiplanar multi-weighted MRI of the cervical spine was performed without intravenous contrast using the standard protocol. Multiplanar multi-weighted MRI of the thoracic spine was performed without intravenous contrast using the standard protocol. COMPARISON: Lumbar spine MRI 03/25/2024 FINDINGS: CERVICAL SPINE: The alignment of the cervical spine is normal. Vertebral bodies demonstrate normal signal intensity on all sequences. No acute fracture is identified. The craniocervical junction is normal. The visualized portions of the skull base and the posterior fossa are normal. The spinal cord demonstrates normal signal intensity on all sequences. Intervertebral disks have normal height and signal intensity. There is an annular fissure at C6-C7 in the setting of a small disc protrusion. No soft tissue abnormality is identified. Normal signal voids are present in the vertebral arteries. Axial images show a left central disc protrusion at C3-C4 which touches the left ventral nerve root. A small central disc protrusion is present at C6-C7 without significant canal or foraminal stenosis. No canal or foraminal stenosis is seen elsewhere in the cervical spine. THORACIC SPINE: The alignment of the thoracic spine is normal. Vertebral bodies demonstrate normal signal intensity on all sequences. There are no compression fractures. The spinal cord demonstrates normal signal intensity on all sequences. Intervertebral disks have normal height and signal intensity. Limited views of the chest and abdomen show no soft tissue abnormality. The aorta is normal. The disks are normal in configuration. There is moderate facet arthropathy on the right at T11-T12. Facets are otherwise normal. There is no neuroforaminal stenosis. There is a prominent left perineural cyst at T9-T10. There is no spinal canal stenosis. Procedure Note Karin Kam MD - 04/15/2024 EXAMINATION: 1. Magnetic resonance imaging (MRI) of the cervical spine without contrast 2. Magnetic resonance imaging (MRI) of the thoracic spine without contrast HISTORY: Myelopathy and loss of balance TECHNIQUE: Multiplanar multi-weighted MRI of the cervical spine was performed without intravenous contrast using the standard protocol. Multiplanar multi-weighted MRI of the thoracic spine was performed without intravenous contrast using the standard protocol. COMPARISON: Lumbar spine MRI 03/25/2024 FINDINGS: CERVICAL SPINE: The alignment of the cervical spine is normal. Vertebral bodies demonstrate normal signal intensity on all sequences. No acute fracture is identified. The craniocervical junction is normal. The visualized portions of the skull base and the posterior fossa are normal. The spinal cord demonstrates normal signal intensity on all sequences. Intervertebral disks have normal height and signal intensity. There is an annular fissure at C6-C7 in the setting of a small disc protrusion. No soft tissue abnormality is identified. Normal signal voids are present in the vertebral arteries. Axial images show a left central disc protrusion at C3-C4 which touches the left ventral nerve root. A small central disc protrusion is present at C6-C7 without significant canal or foraminal stenosis. No canal or foraminal stenosis is seen elsewhere in the cervical spine. THORACIC SPINE: The alignment of the thoracic spine is normal. Vertebral bodies demonstrate normal signal intensity on all sequences. There are no compression fractures. The spinal cord demonstrates normal signal intensity on all sequences. Intervertebral disks have normal height and signal intensity. Limited views of the chest and abdomen show no soft tissue abnormality. The aorta is normal. The disks are normal in configuration. There is moderate facet arthropathy on the right at T11-T12. Facets are otherwise normal. There is no neuroforaminal stenosis. There is a prominent left perineural cyst at T9-T10. There is no spinal canal stenosis. IMPRESSION: Cervical and thoracic spinal cord signal intensity is normal. There is no compressing lesions in the spinal canal compressing the spinal cord to explain myelopathy. There is minimal degenerative changes in the cervical and thoracic spine. Electronically signed by: Karin Kam M.D. Sarah Ruvalcaba NP IMG MRI PROCEDURES Final Result * IR Transforaminal Epidural Injection Lumbar Sacral First Level Bilateral (04/10/2024 4:11 PM PRODUCT MANAGER E [employer]) Narrative RAD_PACS[facility] - 04/10/2024 4:11 PM PRODUCT MANAGER E [employer] The images from this study are not interpreted by Radiology. Please refer to the physician's procedure / OR operative note. us Sarah Ruvalcaba CUT AND PRINT MACHINE OPERATOR IMG IR PROCEDURES Final R esult Performing Organization Address City/[facility] [address]/[facility] Co de Phone Number RAD_PACS[facility] * Hepatitis C antibody (08/06/2020 2:16 PM CDT) Hep C Ab Nonreactive Nonreactive [facility] Comment: Interpretive Data Nonreactive: Antibodies to HCV not detected. Does NOT exclude the possibility of recent exposure to HCV. Equivocal: Equivocal for HCV antibodies. Supplemental molecular testing will be automatically performed to determine infection status in accordance with current CDC screening recommendations. Reactive: Positive for HCV antibodies. This may represent current or past HCV infection. Supplemental molecular testing will be automatically performed to determine current infection status in accordance with current CDC screening recommendations. Interpretive data was last revised on 2019. Blood specimen (specimen) 08/06/2020 2:16 PM CDT 08/06/2020 4:22 PM CDT us Bobbi Valencia MD LAB MICROBIOLOGY - GENERA L ORDERABLES Final Result Performing Organization Address [facility] [address]/[facility] Co de Phone Number [facility] [address] Department [place] [address] from Last 3 Months or Most Recently Relevant to Health Maintenance Insurance [facility] [employer] [place] [facility] ACCESS Care Teams Aerospace Physiological Technician Relationship Specialty Start Date End Date Edu Miller MD [address] [place] [address] PCP - General Internal Medicine 05/12/20
--- OUTSIDE RECORDS SUMMARY | 2024-07-06 08:00 | XMS_ITS | Encounter Summary ---
Author Organization [facility] Address [address] [place] [address] Phone Care Team Providers Care Telesales Specialist Name Role Phone Edu Miller MD Primary Care Provider + [phone] Reason for Visit * Neurology (Routine) - Closed Specialty Diagnoses / Procedures Referred By Opalac t Referred To Contact Diagnoses Lumbar radiculopathy Left low back pain, unspecified chronicity, unspecified whether sciatica present Procedures EMG/NCV WITH ULTRASOUND -Please select the performing region: [facility] (All Locations); Procedure performed at: [facility] Ortho Physiatry Sarah Ruvalcaba NP [address] [place] [address] Phone: tel: fax: [facility] (All Locations) Referral ID Status Reason Start Date Expiration Date Visits Re quested Visits Authorized [id number] Closed 05/30/2024 06/29/2025 1 1 Encounter Details Date Type Department Care Team (Latest Contact Info) Description 07/05/2024 12:45 PM MANAGER GAMING Procedure visit [facility] Orthopaedic Surgery [address] [facility] 6th [place] [address] [place] [address] Rafael Jackson MD [address] [facility] [address] [place] [address] Paresthesia and pain of extremity; Left low back pain, unspecified chronicity, unspecified whether sciatica present Social History Tobacco Use Types Packs/Day Years Used Date Smoking Tobacco: Former Cigarettes 0 07/30/1999 - 07/30/2019 Smokeless Tobacco: Never Comments:casual smoker Comments Unknown Sex and Gender Information Value Date Recorded Sex Assigned at Not on file Legal Sex Female 6:24 AM MANAGER GAMING Gender Identity Not on file Sexual Orientation Not on file documented as of this encounter Progress Notes * Rafael Jackson MD - 07/05/2024 12:45 PM CST Images from the original note were not included. [facility] Orthopedics [address] [facility] [address] [place] [address] Test Date: 07/05/2024 Patient: Clary Valdovinos : 1965 Physician: Rafael Jackson MD Sex: Female Height: ' 2 Ref Phys: Sarah Jordon CASK MAKER ID#: [id number] Weight: 160 lbs. Hospitality Team Member: Patient Complaints: Patient is a very pleasant 58-year-old who presents today for electrodiagnostic evaluation of bilateral lower extremity pain and paresthesias, zkyno-zfdogfg-aadi-left. Query lumbosacral radiculopathy, less likely peripheral neuropathy. NCS Findings: Evaluation of the left Peroneal (to the EDB) motor, the right Peroneal (to the EDB) motor, the leftTibial (to the AH) motor, the right Tibial (to the AH) motor, the left Sural (to the Inf Lat Mall) sensory, and the right Sural (to the Inf Lat Mall) sensory nerves were unremarkable. All left vs. right side differences were within normal limits. EMG Findings: Needle evaluation of the right biceps femoris (short head), the right vastus medialis, the right anterior tibialis, the right peroneus longus, and the right medial gastrocnemius muscles were unremarkable. Impression: Normal study There is no electrodiagnostic evidence of peripheral polyneuropathy. There is no electrodiagnostic evidence of right or left fibular, tibial, or sciatic neuropathy. There is no electrodiagnostic evidence of right lumbosacral radiculopathy. EMG was not performed in the left side as the right side was substantially more symptomatic and EMGwas normal/negative on the right. The above results were discussed in detail with the patient. She will follow up with her referring provider for next steps in management. Rafael Jackson MD Nerve Conduction Studies Anti Sensory Summary Table Stim Site NR Peak (ms) Norm Peak (ms) P-T Amp (??V) Norm P-T Amp Site1 Site2 Delta-P (ms) Dist (cm)Sher (m/s) Norm Sher (m/s) Left Sural (to the Inf Lat Mall) Anti Sensory (Inf Lat Mall) Calf 4.5 <4.5 15.9 >4.0 Calf Inf Lat Mall 4.5 14.0 31 Right Sural (to the Inf Lat Mall) Anti Sensory (Inf Lat Mall) Calf 4.0 <4.5 23.0 >4.0 Calf Inf Lat Mall 4.0 14.0 35 Site 2 4.1 22.5 Motor Summary Table Stim Site NR Onset (ms) Norm Onset (ms) O-P Amp (mV) Norm O-P Amp Site1 Site2 Delta-0 (ms) Dist (cm) Sher (m/s) Norm Sher (m/s) Left Peroneal (to the EDB) Motor (Ext Dig Brev) Ankle 5.6 <6.5 8.1 >1.3 Ankle Ext Dig Brev 5.6 8.0 14 B Fib 11.3 8.1 B Fib Ankle 5.7 28.5 50 >38 Poplt 13.4 8.2 Poplt B Fib 2.1 10.0 48 >40 Right Peroneal (to the EDB) Motor (Ext Dig Brev) Ankle 4.5 <6.5 7.8 >1.3 Ankle Ext Dig Brev 4.5 8.0 18 B Fib 10.0 8.0 B Fib Ankle 5.5 26.5 48 >38 Poplt 11.9 7.9 Poplt B Fib 1.9 10.0 53 >40 Left Tibial (to the AH) Motor (Abd Mercado Brev) Ankle 4.5 <6.1 7.5 >4.4 Ankle Abd Mercado Brev 4.5 8.0 18 Knee 13.2 6.6 Knee Ankle 8.7 35.0 40 >39 Right Tibial (to the AH) Motor (Abd Mercado Brev) Ankle 4.5 <6.1 11.8 >4.4 Ankle Abd Mercado Brev 4.5 8.0 18 Knee 12.3 10.5 Knee Ankle 7.8 36.5 47 >39 EMG Side Muscle Nerve Root Ins Act Fibs Psw Amp Dur Poly Recrt Int Pat Comment Right BicepsFemS Sciatic L5-S1 Nml Nml Nml Nml Nml 0 Nml Nml Right VastusMed Femoral L2-4 Nml Nml Nml Nml Nml 0 Nml Nml Right AntTibialis Dp Br Peron L4-5 Nml Nml Nml Nml Nml 0 Nml Nml Right Peroneus Long Sup Br Peron L5-S1 Nml Nml Nml Nml Nml 0 Nml Nml Right MedGastroc Tibial S1-2 Nml Nml Nml Nml Nml 0 Nml Nml Nerve Conduction Studies Anti Sensory Left/Right Comparison Stim Site L Lat (ms) R Lat (ms) L-R Lat (ms) L Amp (??V) R Amp (??V) L-R Amp (%) Site1 Site2 L Sher (m/s) R Sher (m/s) L-R Sher (m/s) Sural (to the Inf Lat Mall) Anti Sensory (Inf Lat Mall) Calf 4.5 4.0 0.5 15.9 23.0 30.9 Calf Inf Lat Mall 31 35 4 Site 2 4.1 22.5 Motor Left/Right Comparison Stim Site L Lat (ms) R Lat (ms) L-R Lat (ms) L Amp (mV) R Amp (mV) L-R Amp (%) Site1 Site2 L Sher (m/s) R Sher (m/s) L-R Sher (m/s) Peroneal (to the EDB) Motor (Ext Dig Brev) Ankle 5.6 4.5 1.1 8.1 7.8 3.7 Ankle Ext Dig Brev 14 18 4 B Fib 11.3 10.0 1.3 8.1 8.0 1.2 B Fib Ankle 50 48 2 Poplt 13.4 11.9 1.5 8.2 7.9 3.7 Poplt B Fib 48 53 5 Tibial (to the AH) Motor (Abd Mercado Brev) Ankle 4.5 4.5 0.0 7.5 11.8 36.4 Ankle Abd Mercado Brev 18 18 0 Knee 13.2 12.3 0.9 6.6 10.5 37.1 Knee Ankle 40 47 7 Waveforms: GER GAMING documented in this encounter Plan of Treatment Not on file documented as of this encounter Procedures Procedure Name Priority Date/Time Associated Diagnosis Comments POCUS SOFT TISSUE OF THE UPPER OR LOWER EXTREMITY Schedule Routine, Read Routine (OP Routine) 07/05/2024 12:33 PM MANAGER GAMING Paresthesia and pain of extremity Left low back pain, unspecified chronicity, unspecified whether sciatica present documented in this encounter Results * POCUS Soft Tissue of the Upper or Lower Extremity (07/05/2024 12:33 PM MANAGER GAMING) Narrative [facility] - 07/05/2024 12:33 PM MANAGER GAMING This procedure was performed and interpreted by the provider. Please refer to the provider's procedure/OR operative note for results. us Rafael Jackson MD POCUS ORDERABLES Final R esult [facility] documented in this encounter Visit Diagnoses Diagnosis Paresthesia and pain of extremity Left low back pain, unspecified chronicity, unspecified whether sciatica present documented in this encounter Orders Imaging Orders Without Results Count Last Order ed Date First Ordered Date ORT EMG/NCV WITH ULTRASOUND 1 07/05/2024 documented in this encounter Care Teams Telesales Specialist Relationship Specialty Start Date End Date Edu Miller MD [address] [place] [address] PCP - General Internal Medicine 05/12/20 documented as of this encounter
--- OUTSIDE RECORDS SUMMARY | 2024-07-06 08:00 | XMS_ITS | Data Portability ---
Author Organization [email or web address], Main Office Address [address] [place] [address] Assessment Encounter Date Assessment Date Assessment LastModified by Organization Details LastModified Time 09/28/2022 09/28/2022 57-year-old female presents to the clinic concerning left long finger pain that has been present for the last 2 months after a puncture by a juanjose pittman. she has been on several antibiotics in the last couple months with minimal improvement. we discussed that puncture wounds from a juanjose bushes can lead to fungal infections from Sporotrichosis and may be the reason why the previous antibiotics were not helping as she was not on any antifungal. We discussed treatment options including a 2 week course of itraconazole 200 mg b.i.d. and alumafoam splinting. if this clears up the infection in her finger and she is still having some pain, we may consider corticosteroid injection into DIP joint for her osteoarthritis. She will follow up in 2 weeks for re-evaluation. [email or web address] Not available 09/28/2022 11:21:11 Plan of Treatment Reminders Order Date Submit Date Provider Last Modified By Organization Details Last Modified Time Details Appointments None recorded. Lab None recorded. Referral None recorded. Procedures None recorded. Surgeries None recorded. Imaging XR, hand, 3 or more view 2022 023 [email or web address] [facility] [place], [address], [place], [address], 3 12:13:53 XR, hand, 3 or more view 2022 023 [email or web address] [facility] [place], [address], [place], [address], 3 11:12:28 Medication Orders itraconazo le 200 mg tablet 2022 023 [email or web address] [facility] [place], [address], 11:15:28 itraconazo le 200 mg tablet 2022 023 [email or web address] [place], [address], 13:40:21 Patient TargetsNo targets recorded. Patient InstructionsNo instructions recorded. Reason for Referral None Reported. Results Created Date Observation Date Name Description Value Unit Range Abnormal Flag Note LastModifiedBy Organization Detail LastModifiedTime 09/18/1909/09/2022 MRI, hand, w/wo contr ast No observ ation record ed. [email or web address] Not Available 08/30 10:35:06 09/18/19 23 09/05/2022 XR, hand, 3 or more view No observ ation record ed. [email or web address] Not Available 08/30 10:35:07 09/29/19 23 09/05/2022 XR, hand, 3 or more view No observ ation record ed. [email or web address] Not Available 09/28 11:22:57 09/29/19 23 09/09/2022 MRI, hand, w/o contr ast No observ ation record ed. [email or web address] Not Available 09/28 11:23:19 10/13/19 23 XR, hand, 3 or more view No observ ation record ed. [email or web address] [facility] [place] [address], [place], [address], 10/12/2022 11:12:28 11/10/19 23 XR, hand, 3 or more view No observ ation record ed. [email or web address] [facility] [place] [address], [place], [address], 11/09/2022 12:13:52 Result Notes None recorded. Problems Name Problem SNOMED Code Status Onset Date Resolution Date Notes Provider Name and Address Organization Details Recorded Time Pain of left hand 8508092126417 03 Active 2022 EKTA Rea null, [facility] [employer] [facility] 3 10:35:49 Infection of finger 509242704 Active 2022 Angel Dee MD [address] [facility], [facility] [address], [place], [address], [facility] [employer] [facility] 3 11:12:41 Sporotricho sis 89103923 Active 2022 Zoë oliva, [facility] [employer] [facility] 3 10:21:00 Problem Notes None recorded. Procedures Surgical History Date Name Laterality Status Provider Name and Address Organization Details Recorded Time Gallbladder Surgery completed KETA Rea [facility] [employer] [facility] 09/28/2022 10:35:10 Tubal Ligation completed EKTA Rea [facility] [employer] [facility] 09/28/2022 10:35:21 Imaging Results Imaging Date Name Status LastModified by Organiz ation Details LastModified Time 09/09/2022 MRI, hand, w/wo contrast completed Information not available 09/17/2022 10:35:06 09/05/2022 XR, hand, 3 or more view completed Information not available 09/17/2022 10:35:07 09/05/2022 XR, hand, 3 or more view completed Information not available 09/28/2022 11:22:57 09/09/2022 MRI, hand, w/o contrast completed [email or web address] Information not available 09/28/2022 11:23:19 10/12/2022 XR, hand, 3 or more view completed [email or web address] [facility] [place] [address], [place], [address], 10/12/2022 11:12:28 11/09/2022 XR, hand, 3 or more view completed [email or web address] [facility] [place] [address] [address], [place], [address], 11/09/2022 12:13:52 Procedure Notes None recorded. Medical Equipment None Reported. Medications Name Sig Start Date Stop Date Status Note LastModified by Organization Details LastModified Time fluconazole 100 mg tablet active Not Available Not Available Not Available cefuroxime axetil 250 mg tablet active Not Available Not Available No t Available divalproex 250 mg tablet,mathieu yed release active Not Available Not Available Not Available trazodone 50 mg tablet active Not Available Not Available Not Available pravastatin 40 mg tablet active Not Available Not Available Not Available naltrexone 50 mg tablet active Not Available Not Available Not Available ciprofloxac in 500 mg tablet active Not Available Not Available Not Available sulfamethox azole 800 mg-trimetho prim 160 mg tablet active Not Available Not Available Not Available levothyroxi ne 100 mcg tablet active Not Available Not Available Not Available lisinopril 10 mg tablet active Not Available Not Available Not Available triamterene 37.5 mg-hydrochl orothiazide 25 mg tablet active Not Available Not Available Not Available itraconazol e 100 mg capsule Take 2 capsules every day by oral route for 21 days. active Not Available Not Available No t Available amoxicillin 875 mg-potassiu m clavulanate 125 mg tablet 09/28 completed Not Available Not Available Not Available bupropion HCl XL 150 mg 24 hr tablet, extended release active Not Available Not Available Not Available pregabalin 50 mg capsule active Not Available Not Available Not Available itraconazol e 200 mg tablet Take 1 tablet twice a day by oral route. 2022 active Not Available Not Available Not Avai lable Vitals Date Recorded Body height Body mass index (BMI) Body weight Provider Name and Address Organization Details Last Updated DateTime 09/28/2022 157.48 cm 27.4 kg/m2 25142.86 g Kay Chacon ATC L [place] [facility] 09/28/2022 10:32:06 Date Recorded Body height Body mass index (BMI) Body weight Pain severity - 0-10 verbal numeric rating [Score] - Reported Provider Name and Address Organization Details Last Updated DateTime 10/12/2022 157.48 cm 27.6 kg/m2 06603.45 g Mahnaz JEYSON Thomas [facility] [employer] [facility] 10/12/2022 10:13:34 Date Recorded Body height Body mass index (BMI) Body weight Pain severity - 0-10 verbal numeric rating [Score] - Reported Provider Name and Address Organization Details Last Updated DateTime 11/09/2022 157.48 cm 28.7 kg/m2 32946 g 0 JEYSON Thomas [facility] [employer] [facility] 11/09/2022 11:42:24 Social History Question Answer Notes LastModified by Organizat ion Details LastModified Time Tobacco Smoking Status Never Smoker Kay Oswaldo, ATC L [facility], [facility] [employer] [facility] 09/28/2022 10:35:01 What Is Your Level Of Alcohol Consumption? Occasional [email or web address] Information not available 09/28/2022 Sex: Unknown Functional Status None recorded. Mental Status None recorded. Family History Relationship Description Onset Age of this Age Resolved Age Notes LastModified by Organization Details LastModified Time Father Heart disease [email or web address] Not available 09/01 10:33:52 Father Diabetes mellitus [email or web address] Not available 09/01 10:34:26 Mother Hypertensive disorder [email or web address] Not available 09/01 10:34:08 Mother Diabetes mellitus [email or web address] Not available 09/01 10:34:26 Mother Kidney disease [email or web address] Not available 09/01 10:34:46 Sister Diabetes mellitus [email or web address] Not available 09/01 10:34:26 Sister Kidney disease [email or web address] Not available 09/01 10:34:46 Medical History Condition Response HYPERTENSION Y Gynecological HistoryNo gynecological history recorded. Obstetrics History GPAL:G 0 P 0 0 0 0 Past Encounters Encounter ID Performer Location Encounter Start Date Encounter Closed Date Diagnosis/Indication Diagnosis SNOMED-CT Code Diagnosis ICD10 Code Diagnosis Note [id number] NADIA Mann [facility] [place] [address] [place] [address] 09/28/2022 10:16:29 09/28/2022 11:05:56 Pain of left hand 0658311055 60749 M79.642 [id number] Angel Dee MD [facility] [place] [address] [place] [address] 10/12/2022 10:10:48 10/12/2022 10:52:30 Pain of left hand 8888640484 37039 M79.642 Infection of finger 2999 98153 L08.9 will have the patient continue with itraconazo le for 4 more weeks as we usually do a 6 week course of for concerned about a fungal infection. She can use the splint intermitte ntly as well if she has any pain or inflammati on. We will see her for final evaluation a few weeks. She understand s come in sooner if any significan t swelling or open wound her other issue were to develop [id number] Angel Dee MD [facility] [place] [address] [place] [address] 11/09/2022 11:39:39 11/09/2022 12:11:24 Pain of left hand 6037543542 89355 M79.642 patient is doing well with the sporotrich osis infection we will see her back now if any problems arise she has good range of motion of the joint does not feel much pain at all now happy so far at this point. Her other fingernail s all cleared up nicely probably had a low-grade chronic eponychial irritation that resolved with the anti fungal Health Concerns Section Related Observation LastModified by Organization Detai ls LastModified Time None Recorded Concern Status LastModified by Organization Details LastModified Time None Recorded Advance Directives Directive None Recorded Payers Encounter Date Sequence Insurance Name Policy Number Policy Pratt Covered Member ID Pratt Member ID Guarantor Name 09/28/2022 1 [employer] [id number] Lance Valdovinos [id number] Clary Valdovinos 10/12/2022 1 [place] [id number] Lance Valdovinos [id number] Clary Valdovinos 11/09/2022 1 [place] [id number] Lance Valdovinos [id number] Clary Valdovinos Notes Date Note Type Note Provider Name and Address Organization Details Recorded Time 09/28/2022 text/html 57-year-old sydney raphael presents to the clinic concerning left long finger pain. She states that approximately 2 months ago she was trimming some juanjose bushes and got a puncture from 1 of the thorns near her DIP joint. she was provided with several courses of antibiotics including cefuroxime, Cipro, Bactrim, and Augmentin. She states that she continues to have tenderness, swelling, and difficulty with flexion and extension of her left long finger. She notes having occasional chills but denies any fevers. 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 D IP long finger she has been doing a trick on the sole and it has helped and time is probably helped she has had no open wounds or drainage now for quite awhile comes in today for follow-up still little sensitivity over the tip due to the swelling as it gradually subsides no more peeling of the skin has occurred Angel Dee MD [address], [place], [address], [employer] 10/12/2022 11:13:20 11/09/2022 text/html patient returns today for follow-up she had a 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
--- OUTSIDE RECORDS SUMMARY | 2024-07-06 08:00 | XMS_ITS | Clinical Summary ---
Author Organization [facility] Address [address] [place] [address] Care Team Providers Care An/Syq 13 Nav/C2 Operator Name Role Phone Edu Miller MD Primary Care Provider + [phone] Allergies No known active allergies Medications lisinopriL (PRINIVIL,ZESTR IL) 10 mg tablet Take 1 tablet (10 mg total) by mouth daily 0 Active levothyroxine (SYNTHROID) 100 mcg tablet Take 1 tablet (100 mcg total) by mouth crater and packer before breakfast 1 Active multivitamin with minerals [...] (07/30/2020): Added automatically from request for surgery [id number] Palpitations 12/07/2019 Premature ventricular contractions 12/07/2019 Encounters Date Type Department Care Team Description 07/05/2024 12:45 PM COIL INSPECTOR Procedure visit [facility] [address] [facility] [address] [place] [address] [place] [address] Rafael Jackson MD Paresthesia and pain of extremity; Left low back pain, unspecified chronicity, unspecified whether sciatica present 07/05/2024 12:35 PM COIL INSPECTOR Ancillary Procedure [facility] [address]th [place] [address] [place] [address] Arrived 06/05/2024 10:40 AM COIL INSPECTOR Office Visit [facility] [address] [facility] [address] [place] [address] Austen Epperson MD Trochanteric bursitis of both hips (Primary Dx); Lumbar radiculopathy; Left low back pain, unspecified chronicity, unspecified whether sciatica present 05/30/2024 2:00 PM COIL INSPECTOR Office Visit [facility] [address] [facility] 2nd [address] [place] [address] Sarah Ruvalcaba NP Lumbar radiculopathy (Primary Dx); Left low back pain, unspecified chronicity, unspecified whether sciatica present 04/15/2024 9:08 AM COIL INSPECTOR - 04/15/2024 11:59 PM COIL INSPECTOR Hospital Encounter [facility] [address] [address] Left low back pain, unspecified chronicity, unspecified whether sciatica present; Lumbar radiculopathy Discharge Disposition: Discharge to home or self care 04/15/2024 9:08 AM COIL INSPECTOR - 04/15/2024 11:59 PM COIL INSPECTOR Hospital Encounter [facility] [address] [address] Left low back pain, unspecified chronicity, unspecified whether sciatica present; Lumbar radiculopathy Discharge Disposition: Discharge to home or self care 04/10/2024 2:45 PM COIL INSPECTOR - 04/10/2024 11:59 PM COIL INSPECTOR Hospital En[place] [facility] [address] [facility] [address] [place] [id number] Isi Landa MD Left low back pain, unspecified chronicity, unspecified whether sciatica present; Lumbar radiculopathy Discharge Disposition: Discharge to home or self care from Last 3 Months Immunizations Immunization Administration Dates Next Due Influenza, Quadrivalent, Split, Intramuscular ,02/14/2015 Influenza, Quadrivalent, Spl it, Preservative Free, Intramuscular 03/13/2020,02/23/2018 Influenza, Trivalent, IM (ALIX) 01/06/2017 [employer] ([employer]) SARS-CoV-2 Vaccination 08/07/2020 Pneumococcal Conjugate PCV 13 11/28/2014 Tdap 11/28/2014 ZOSTER Recombinant 03/13/2020,11/02/2019 Surgical History Surgery Date Site/Laterality Comments TOTAL VAGINAL HYSTERECTOMY FL UPPER GI AIR CONTRAST W KUB 04/10/2024 Bilateral Medical History Medical History Date Comments Hypertension Back pain Arthritis Wears glasses Anxiety Thyroid disorder Family History Medical History Relation Name Comments Heart disease Brother 1 jorge luis Polycystic kidney disease Brother 1 jorge luis Hypertension Brother 2 Diabetes Father Heart disease Father Diabetes Mother Diabetes Sister 1 Shania Heart disease Sister 1 Shania Polycystic kidney disease Sister 1 Shania Hypertension Sister 2 Polycystic kidney disease Sister 2 Relation Name Status Comments Brother 1 jorge luis Brother 2 Alive Father Mother Alive Sister 1 Shania Alive Sister 2 Alive Social History Tobacco Use Types Packs/Day Years Used Date Smoking Tobacco: Former Cigarettes 0 07/30/1999 - 07/30/2019 Smokeless Tobacco: Never Comments:casual smoker Comments Unknown Sex and Gender Information Value Date Recorded Sex Assigned at Not on file Legal Sex Female 6:24 AM COIL INSPECTOR Gender Identity Not on file Sexual Orientation Not on file Obstetrics History Last Filed Vital Signs Vital Sign Reading Time Taken Comments Blood Pressure 122/68 10/29/2020 3:28 PM CDT Pulse 71 10/29/2020 3:28 PM CDT Temperature 36.8 C (98.3 F) 10/29/2020 3:28 PM CDT Respiratory Rate 14 10/29/2020 3:28 PM CDT Oxygen Saturation 96% 10/29/2020 3:28 PM CDT Inhaled Oxygen Concentration - - Weight 73.1 kg (161 lb 3.2 oz) 06/05/2024 10:46 AM COIL INSPECTOR Height 158 cm (5' 2.2 ) 06/05/2024 10:46 AM COIL INSPECTOR Body Mass Index 29.29 06/05/2024 10:46 AM COIL INSPECTOR Plan of Treatment Health Maintenance Due Date Last Done Comments Breast Cancer Screening-Mammogram 1965 Colon Cancer Screening-Colonoscopy 1965 Depression Screening 1965 Hepatitis B Screening 07/14/1981 Regular Well Visit/Exam 18-64 07/14/1981 Covid-19 Vaccine (2 - season) 2024 08/07/2020 DTaP/Tdap/Td Vaccine (2 - Td or Tdap) 11/28/2024 11/28/2014 Pneumococcal vaccine <65 Aged Out 11/28/2014 No longer eligible based on patient's age to complete this topic Zoster Vaccine Completed 03/13/2020, 11/02/2019 Hepatitis C Screening Completed 08/06/2020 Influenza Vaccine Completed 01/31/2024, , 02/23/2018, Additional history exists Procedures Procedure Name Priority Date/Time Associated Diagnosis Comments POCUS SOFT TISSUE OF THE UPPER OR LOWER EXTREMITY Schedule Routine, Read Routine (OP Routine) 07/05/2024 12:33 PM COIL INSPECTOR Paresthesia and pain of extremity Left low back pain, unspecified chronicity, unspecified whether sciatica present MRI CERVICAL SPINE WO CONTRAST Schedule Routine, Read Routine (OP Routine) 04/15/2024 10:03 AM COIL INSPECTOR Left low back pain, unspecified chronicity, unspecified whether sciatica present Lumbar radiculopathy MRI THORACIC SPINE WO CONTRAST Schedule Routine, Read Routine (OP Routine) 04/15/2024 10:03 AM COIL INSPECTOR Left low back pain, unspecified chronicity, unspecified whether sciatica present Lumbar radiculopathy TRANSFORAMINAL EPIDURAL INJECTION LUMBAR SACRAL FIRST LEVEL BILATERAL Schedule Routine, Read Routine (OP Routine) 04/10/2024 4:11 PM COIL INSPECTOR Left low back pain, unspecified chronicity, unspecified whether sciatica present Lumbar radiculopathy HEPATITIS C ANTIBODY Routine 08/06/2020 2:16 PM CDT Elevated antinuclear antibody (ALFREDO) level from Last 3 Months or Most Recently Relevant to Health Maintenance Results * POCUS Soft Tissue of the Upper or Lower Extremity (07/05/2024 12:33 PM COIL INSPECTOR) Narrative RAD[facility]PACS_P[facility]US[facility] - 07/05/2024 12:33 PM COIL INSPECTOR This procedure was performed and interpreted by the provider. Please refer to the provider's procedure/OR operative note for results. us Rafael Jackson MD POCUS ORDERABLES Final R esult RAD[facility]PACS_[facility] * MRI Cervical Spine WO Contrast (04/15/2024 10:03 AM COIL INSPECTOR) Anatomical Region Laterality Modality Spine N/A Magnetic Resonan ce 04/15/2024 11:3 1 AM COIL INSPECTOR Impressions 04/15/2024 11:31 AM COIL INSPECTOR Cervical and thoracic spinal cord signal intensity is normal. There is no compressing lesions in the spinal canal compressing the spinal cord to explain myelopathy. There is minimal degenerative changes in the cervical and thoracic spine. Electronically signed by: Karin Kam M.D. Narrative 04/15/2024 11:31 AM COIL INSPECTOR EXAMINATION: 1. Magnetic resonance imaging (MRI) of [...] signed by: Karin Kam M.D. Sarah Ruvalcaba [employer] IMG MRI PROCEDURES Final Result * MRI Thoracic Spine WO Contrast (04/15/2024 10:03 AM COIL INSPECTOR) Anatomical Region Laterality Modality Spine N/A Magnetic Resonan ce 04/15/2024 11:3 1 AM COIL INSPECTOR Impressions 04/15/2024 11:31 AM COIL INSPECTOR Cervical and thoracic spinal cord signal intensity is normal. There is no compressing lesions in the spinal canal compressing the spinal cord to explain myelopathy. There is minimal degenerative changes in the cervical and thoracic spine. Electronically signed by: Karin Kam M.D. Narrative 04/15/2024 11:31 AM COIL INSPECTOR EXAMINATION: 1. Magnetic resonance imaging (MRI) of [...] signed by: Karin Kam M.D. Sarah Ruvalcaba [employer] IM MRI PROCEDURES Final Result * IR Transforaminal Epidural Injection Lumbar Sacral First Level Bilateral (04/10/2024 4:11 PM COIL INSPECTOR) Narrative RAD_PACS_[facility] - 04/10/2024 4:11 PM COIL INSPECTOR The images from this study are not interpreted by Radiology. Please refer to the physician's procedure / OR operative note. Sarah Ruvalcaba NP IM IR PROCEDURES Final R esult RAD_PACS[facility] * Hepatitis C antibody (08/06/2020 2:16 PM CDT) Hep C Ab Nonreactive Nonreactive [facility] Comment: Interpretive Data Nonreactive: Antibodies to [...] 2:16 PM CDT 08/06/2020 4:22 PM CDT Bobbi Valencia MD LAB MICROBIOLOGY - GENERA L ORDERABLES Final Result [facility] [address] Department [place] [address] from Last 3 Months or Most Recently Relevant to Health Maintenance Insurance [facility] [place] Dada AL [facility] [place] OPEN ACCESS Care Teams An/Syq 13 Nav/C2 Operator Relationship Specialty Start Date End Date Edu Miller MD [address] [place], [place] [id number] PCP - General Internal Medicine 05/12/20
--- OUTSIDE RECORDS SUMMARY | 2024-07-06 08:00 | XMS_ITS | Clinical Summary ---
Author Organization [facility] Address [address] [place] [address] Care Team Providers Care Back Tufter Name Role Phone Edu Miller MD Primary Care Provider [phone] Josse Newsome MD Unavailable Allergies No known active allergies Medications aspirin 81 MG chewable tablet Chew 1 tablet by mouth daily. 12/06/2010 Active hydroCHLOROthia zide 25 MG tablet Take 1 tablet by mouth daily. 12/06/2010 Active ALPRAZolam 0.5 MG tablet Take 0.5 mg by mouth 2 (two) times daily as needed. 11/22/2019 Active divalproex EC 250 MG tablet Take 500 mg by mouth every morning. 11/22/2019 Active gabapentin 300 MG capsule TAKE 2 CAPSULES THREE TIMES A DAY AND 2 EXTRA CAPSULES AT BEDTIME 11/28/2019 Active levothyroxine 100 MCG tablet Take 100 mcg by mouth daily. 11/28/2019 Active lisinopril 10 MG tablet Take 10 mg by mouth daily. 10/08/2019 Active pravastatin 40 MG tablet Take 40 mg by mouth nightly at bedtime. 11/21/2019 Active traMADol-acetam inophen 37.5-325 MG tablet 1 tablet every 6 (six) hours as needed. 09/25/2019 Active traZODone 100 MG tablet 150 mg nightly at bedtime. 10/04/2019 Active multi vitamin/mineral s tablet Take 1 tablet by mouth daily. Active coenzyme Q-10 150 MG capsule Take 150 mg by mouth daily. Active fish oil 1000 MG Cap capsule Take 1,000 mg by mouth 2 (two) times daily. Active biotin 59894 MCG tablet Take 5,000 mcg by mouth daily. Active Active Problems Problem Noted Date Diagnosed Date Palpitations 12/07/2019 Premature ventricular contractions 12/07/2019 Family History Medical History Relation Comments Coronary artery disease Father Diabetes Father Diabetes Mother Kidney Disease Mother Kidney Disease Sister Relation Status Comments Father Mother Sister Social History Tobacco Use Types Packs/Day Years Used Date Smoking Tobacco: Never Smokeless Tobacco: Never Tobacco Cessation:Counseling Given: No Alcohol Use Standard Drinks/Week Comments Never 0 (1 standard drink = 0.6 oz pur e alcohol) AUDIT-C Answer Date Recorded Q1: How often do you have a drink containing alc ohol? Never 12/07/2019 Average Number of Drinks Not on file 020 Frequency of Binge Drinking Not on file 10/2019 Comments Unknown Sex and Gender Information Value Date Recorded Sex Assigned at Not on file Legal Sex Female 4:55 PM CDT Gender Identity Not on file Sexual Orientation Not on file Last Filed Vital Signs Vital Sign Reading Time Taken Comments Blood Pressure 124/70 12/07/2019 9:52 AM CDT Pulse 68 12/07/2019 9:52 AM CDT Temperature - - Respiratory Rate 18 12/07/2019 9:52 AM CDT Oxygen Saturation - - Inhaled Oxygen Concentration - - Weight 75.8 kg (167 lb) 12/07/2019 9:52 AM CDT Height 157.5 cm (5' 2 ) 12/07/2019 9:52 AM CDT Body Mass Index 30.54 12/07/2019 9:52 AM CDT Plan of Treatment Health Maintenance Due Date Last Done Comments Colorectal Cancer Screening Colonoscopy (10 Years) 1965 Annual Physical 07/14/1966 Hepatitis C 07/14/1981 DTaP, Tdap and Td Vaccines ( 1 - Tdap) 07/14/1982 Mammogram Screening 2003 Zoster Vaccines (2 of 2) 12/28/2019 11/02/2019 COVID-19 Vaccine ( - 2023-2 5 season) 2024 Influenza Adult (#1) 2024 RSV Immunization or 60+ Years (1 - 1-dose 75+ series) 07/14/2038 Pneumococcal Vaccine: Pediat rics (0 to 5 Years) and At-Risk Patients (6 to 64 Years) Aged Out 11/28/2014 No longer eligi ble based on patient's age to complete this topic Meningococcal B Vaccine Aged Out No l onger eligible based on patient's age to complete this topic Meningococcal Vaccine Aged Out No michelet connor eligible based on patient's age to complete this topic RSV Immunizations Under 20 Months Aged Out No longer eligible based on patient's age to complete this topic Insurance [employer] CIGNA Care Teams Back Tufter Relationship Specialty Start Date End Date Edu Miller MD [address] [place] [id number] PCP - General INTERNAL MEDICINE 11/27/19 Josse Newsome MD [address] [place] [address] Consulting Physician CLINICAL CARDIAC ELECTROPHYSIOLOGY 11/27/19
--- OUTSIDE RECORDS SUMMARY | 2024-07-06 08:00 | XMS_ITS | Encounter Summary ---
Author Organization [facility] Address [address] [place] [address] Phone Care Team Providers Care Elementary Teacher Name Role Phone Edu Miller MD Primary Care Provider + [phone] Encounter Details Date Type Department Care Team (Late st Contact Info) Description 07/05/2024 12:35 PM WATER MAIN PIPE LAYER Ancillary Procedure [facility] [address] [place] [address] 6th [place] [address] [place] [address] Arrived Social History Tobacco Use Types Packs/Day Years Used Date Smoking Tobacco: Former Cigarettes 0 07/30/1999 - 07/30/2019 Smokeless Tobacco: Never Comments:casual smoker Comments Unknown Sex and Gender Information Value Date Recorded Sex Assigned at Not on file Legal Sex Female 6:24 AM WATER MAIN PIPE LAYER Gender Identity Not on file Sexual Orientation Not on file documented as of this encounter Plan of Treatment Not on file documented as of this encounter Procedures Procedure Name Priority Date/Time Associated Diagnosis Comments POCUS SOFT TISSUE OF THE UPPER OR LOWER EXTREMITY Schedule Routine, Read Routine (OP Routine) 07/05/2024 12:33 PM WATER MAIN PIPE LAYER Paresthesia and pain of extremity Left low back pain, unspecified chronicity, unspecified whether sciatica present documented in this encounter Results * POCUS Soft Tissue of the Upper or Lower Extremity (07/05/2024 12:33 PM WATER MAIN PIPE LAYER) Narrative RAD[facility]PACS[facility] - 07/05/2024 12:33 PM WATER MAIN PIPE LAYER This procedure was performed and interpreted by the provider. Please refer to the provider's procedure/OR operative note for results. us Rafael Jackson MD POCUS ORDERABLES Final R esult [facility] documented in this encounter Visit Diagnoses Not on filedocumented in this encounter Care Teams Elementary Teacher Relationship Specialty Start Date End Date Edu Miller MD [address] [place] [address] PCP - General Internal Medicine 05/12/20 documented as of this encounter
== END 2024-07-06 07:50 | disposition home or self-care (01) ==
LOC: CHSIMG 07:54
PROVIDERS: PCP Internal Medicine; Visit Provider Internal Medicine
DX: Z78.0 Asymptomatic menopausal state (principal); M85.88 Other specified disorders of bone density and structure, other site
CPT/HCPCS: 77080

== ENCOUNTER 2025-02-18 07:53 | Outpatient (CLI) | payer OTHER, SELFPAY ==
--- NOTE | ~2025-02-18 | MM_ITS ---
EXAMINATION: MM screening belkis BI w francesca HISTORY: Screening TECHNIQUE: Craniocaudal and mediolateral oblique 3-D tomosynthesis images were obtained and synthetic 2-D images were generated. CAD analysis was submitted and interpreted. COMPARISON: Comparison to multiple prior studies sequentially, with oldest reviewed study dated 09/13/2018. BREAST PARENCHYMAL COMPOSITION: Dense: The breasts are heterogeneously dense, which may obscure small masses FINDINGS: There is a possible new area of architectural distortion in the lateral aspect of the right breast on CC view. The left breast is stable without evidence for malignancy. IMPRESSION: 1. Possible new area of architectural distortion laterally in the right breast on CC view, middle third. 2. Additional mammographic views and possible breast ultrasound are recommended. BI-RADS Category 0: Incomplete: Needs additional imaging evaluation. Reviewed, dictated and finalized at location O. IMPRESSION: 1. Possible new area of architectural distortion laterally in the right breast on CC view, middle third. 2. Additional mammographic views and possible breast ultrasound are recommended . BI-RADS Category 0: Incomplete: Needs additional imaging evaluation.
--- OUTSIDE RECORDS SUMMARY | 2025-02-18 07:59 | XMS_ITS | Patient Health Record ---
Author Organization [facility] [email or web address] Address [address] [place] [address] Care Team Providers Care Independent Living Specialist Name Role Phone Deric Hollins Unavailable [phone] Reason For Referral No Information Medications Medication SIG (Take, Route, Frequency, Duration) Notes Start Date End Date Status Pregabalin 50 MG Capsule Oral 09/16/2023 Active Levothyroxine Sodium 100 MCG Tablet Oral 09/16/2023 Active Ezetimibe 10 MG Tablet Oral 09/16/2023 Active Lisinopril 10 MG Tablet Oral 09/16/2023 Active Klor-Con 10 10 MEQ Tablet Extended Release Oral 09/16/2023 Acti ve Triamterene-HCTZ 37.5-25 MG Tablet Oral 09/16/2023 Active Wellbutrin XL 150 MG Tablet Extended Release 24 Hour Oral 09/16/2023 Active traZODone HCl 100 MG Tablet Oral 09/16/2023 Active Ondansetron 4 MG Tablet Disintegrating Oral 09/16/2023 Active buPROPion HCl ER (XL) 150 MG Tablet Extended Release 24 Hour Oral 09/16/2023 Active Meloxicam 15 MG Tablet Oral 09/16/2023 Active Pravastatin Sodium 40 MG Tablet Oral 09/16/2023 Active Stool Softener *Pick strength-form from [employer] for eRX* 09/16/2023 Active Immunizations Vaccine Route Administration Date Status Comme nts Influenza virus vaccine, quadrivalent (IIV4), split virus, 0.25 mL dosage Unknown 02/14/2015 Administered Influenza virus vaccine, quadrivalent (IIV4), split virus, 0.25 mL dosage Unknown 01/19/2016 Administered Influenza, seasonal, injecta ble, preservative free, 3 yrs and above Unknown 01/06/2017 Administered Ortiz Covid-19 Vaccine Unknown 08/07/2020 Administere d Novel [id number], preservative free Unknown 02/23/2018 Administered Novel [id number], preservative free Unknown 03/13/2020 Administered Pneumococcal conjugate PCV 13 Unknown 11/28/2014 Admini stered Tdap Unknown 11/28/2014 Administered Zoster Unknown 11/02/2019 Administered Zoster Unknown 03/13/2020 Administered Social History Social History Additional Details Category Social Info Options Details Migrated Social History Migrated Social History Alcohol Intake: Occasional 11/15/2022,Tobacco Years: Former smoker 08/14/2020 Plan Of Treatment No Information Insurance Providers Payer Name Payer Address Payer Phone Subscriber Number Group Number Insured Name Patient Relationship to Insured Coverage Start Date Coverage End Date [facility] [address] [place] [address] [id number] SANDI HUSAIN Spouse - patient is the spouse of the insured Medical (General) History Surgical History Surgery Date(Month/Year) Removal of gallbladder (36939) Hysterectomy (93113)
--- OUTSIDE RECORDS SUMMARY | 2025-02-18 07:59 | XMS_ITS | Clinical Summary ---
Author Organization [facility] Address [address] [place] [address] Care Team Providers Care Contracts Analyst Name Role Phone Edu Miller MD Primary Care Provider [phone] Josse Newsome MD Unavailable Allergies No known [...] mouth 2 (two) times daily. Active biotin 19661 MCG tablet Take 5,000 mcg by mouth [...] 9:52 AM CDT Height 157.5 cm (5' 2) 12/07/2019 9:52 AM CDT Body Mass Index 30.54 12/07/2019 9:52 AM CDT Plan of Treatment Health Maintenance Due Date Last Done Comments Colorectal Cancer Screening Colonoscopy (10 Years) 1965 Annual Physical 07/14/1966 Hepatitis C 07/14/1981 DTaP, Tdap and Td Vaccines ( 1 - Tdap) 07/14/1982 Mammogram Screening 2003 Pneumococcal Vaccine: 50+ Ye ars (2 of 2 - PCV20 or PCV21) 11/29/2015 11/28/2014 Zoster Vaccines (2 of 2) 12/28/2019 11/02/2019 COVID-19 Vaccine (1 - 2023-2 5 season) 2024 Influenza Adult (#1) 2025 RSV Immunization or 60+ Years (1 - 1-dose 75+ series) 07/14/2038 Hepatitis A Vaccines Aged Out No long er eligible based on patient's age to complete [...] this topic Insurance CIG[employer] CIGNA Care Teams Contracts Analyst Relationship Specialty Start Date End Date Edu Miller MD [address] [place] [id number] PCP - General INTERNAL MEDICINE 11/27/19 Josse Newsome MD [facility] [place] [address] Consulting Physician CLINICAL CARDIAC ELECTROPHYSIOLOGY 11/27/19
--- OUTSIDE RECORDS SUMMARY | 2025-02-18 07:59 | XMS_ITS | Clinical Summary ---
Author Organization [facility] D Address [address] [place] [id number] Care Team Providers Care Phonograph Mechanic Name Role Phone Edu Miller MD Primary Care Provider + [phone] Allergies Active Allergy Reactions Criticality Noted Date Comments Pravastatin Other (See comments) 10/24/2024 Medications lisinopriL (PRINIVIL,ZESTR IL) 10 mg tablet Take 1 tablet (10 mg total) by mouth daily 0 Active levothyroxine (SYNTHROID) 100 mcg tablet Take 1 tablet (100 mcg total) by mouth neuroradiologist before breakfast 1 Active multivitamin with minerals (Multiple Vitamin-Mineral s) tablet Take 1 tablet by mouth daily Active UNABLE TO FIND Med Name: medical marijuana Active pregabalin (Lyrica) 50 mg capsuleIndicati ons:Fibromyalgi a Take 1 capsule (50 mg total) by mouth 2 (two) times a day 60 capsule 5 1 Active Repatha SureClick 140 mg/mL pen injector 5 Active metroNIDAZOLE (METROGEL) 1 % gel 5 Active Active Problems Problem Noted Date Diagnosed Date Primary hypertension 09/03/2024 Other specified hypothyroidism 09/03/2024 Premature ventricular contractions 12/07/2019 Resolved Problems Problem Noted Date Diagnosed Date Resolved Date Sporotrichosis 11/04/2022 09/03/2024 Infection of finger 10/12/2022 09/04/19 25 Pain of left hand 09/28/2022 09/03/2024 Encounter for cosmetic surgery 07/30/2020 09/03/2024 Overview (07/30/2020): Added automatically from request for surgery [id number] Palpitations 12/07/2019 09/03/2024 Immunizations Immunization Administration Dates Next Due Influenza, Quadrivalent, Split, Intramuscular ,02/14/2015 Influenza, Quadrivalent, Spl it, Preservative Free, Intramuscular 03/13/2020,02/23/2018 Influenza, Trivalent, IM (MDV) 01/06/2017 [employer] (J&J) SARS-CoV-2 Vaccination 08/07/2020 Pneumococcal Conjugate PCV 13 11/28/2014 Tdap 11/28/2014 ZOSTER Recombinant 03/13/2020,11/02/2019 Surgical History Surgery Date Site/Laterality Comments TOTAL VAGINAL HYSTERECTOMY FL UPPER GI AIR CONTRAST W KUB 04/10/2024 Bilateral Medical History Medical History Date Comments Hypertension Back pain Arthritis Wears glasses Anxiety Thyroid disorder Depression Chronic fatigue Rosacea High cholesterol Hypothyroidism Family History Medical History Relation Name Comments [...] 0 07/30/1999 - 07/30/2019 Smokeless Tobacco: Never Tobacco Cessation:Counseling Given: Not Answered Comments:casual smoker Comments Unknown Sex and Gender Information Value Date Recorded Sex Assigned at Not on file 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 Gender Identity Not on file Sexual Orientation Not on file Obstetrics History Last Filed Vital Signs Vital Sign Reading Time Taken Comments Blood Pressure 147/75 10/24/2024 8:03 AM CDT Pulse 59 10/24/2024 8:03 AM CDT Temperature 36.6 C (97.9 F) 10/24/2024 8:03 AM CDT Respiratory Rate 18 09/03/2024 10:54 AM CDT Oxygen Saturation 96% 09/03/2024 10:54 AM CDT Inhaled Oxygen Concentration - - Weight 73 kg (161 lb) 10/24/2024 8:03 AM CDT Height 157.5 cm (5' 2) 10/24/2024 8:03 AM CDT Body Mass Index 29.45 10/24/2024 8:03 AM CDT Plan of Treatment Health Maintenance Due Date Last Done Comments Breast Cancer Screening-Mammogram 1965 Colon Cancer Screening-Colonoscopy 1965 Depression Screening 1965 Hepatitis B Screening 07/14/1981 Regular Well Visit/Exam 18-64 07/14/1981 DTaP/Tdap/Td Vaccine (2 - Td or Tdap) 11/28/2024 11/28/2014 Covid-19 Vaccine (2 - 2024- season) 2024 08/07/2020 Influenza Vaccine (#1) 2024 , 01/31/2024, 02/18/2022, Additional history exists Pneumococcal vaccine <65 Aged Out 11/28/2014 No longer eligible based on patient's age to complete this topic Zoster Vaccine Completed 03/13/2020, 11/02/2019 Hepatitis C Screening Completed 08/06/2020 Procedures Procedure Name Priority Date/Time Associated Diagnosis Comments HEPATITIS C ANTIBODY Routine 08/06/2020 2:16 PM CDT Elevated antinuclear antibody (ALFREDO) level from Last 3 Months or Most Recently Relevant to Health Maintenance Results * Hepatitis C antibody (08/06/2020 2:16 PM CDT) Hep C Ab Nonreactive Nonreactive [facility] Comment: Interpretive Data Nonreactive: Antibodies [...] - GENERA L ORDERABLES Final Result [facility] [address] Department [place] [address] from Last 3 Months or Most Recently Relevant to Health Maintenance Insurance CIGNA CIGNA CIGNA Care Teams Phonograph Mechanic Relationship Specialty Start Date End Date Edu Miller MD [address] [place] [address] PCP - General Internal Medicine 05/12/20
== END 2025-02-18 07:54 | disposition home or self-care (01) ==
PROVIDERS: PCP Internal Medicine; Visit Provider Internal Medicine
DX: Z12.31 Encounter for screening mammogram for malignant neoplasm of breast (principal); R92.8 Other abnormal and inconclusive findings on diagnostic imaging of breast
CPT/HCPCS: 77063; 77067

== ENCOUNTER 2025-03-14 08:48 | Outpatient (CLI) | payer OTHER, SELFPAY ==
--- NOTE | ~2025-03-14 | MMUS_ITS ---
EXAMINATION: US breast RT limited, MM diagnostic belkis RT w francesca HISTORY: Possible architectural distortion seen on screening mammogram. TECHNIQUE: Additional 3-D tomosynthesis images of the right breast were performed and synthetic 2-D images were generated. CAD analysis was submitted and interpreted. High resolution Limited right breast ultrasound was performed. COMPARISON: Comparison to multiple prior studies sequentially, with oldest reviewed study dated 11/29/2019. BREAST PARENCHYMAL COMPOSITION: Dense: The breasts are extremely dense, which lowers the sensitivity of mammography. FINDINGS: MAMMOGRAPHIC FINDINGS: There is architectural distortion bilaterally in the right breast, anterior- middle depth, on CC view. This is not appreciated on medial lateral view. There are no suspicious calcifications. ULTRASOUND: Limited right breast ultrasound: At 9:00, 7 cm from the nipple there is an irregular shaped and tight parallel mass measuring 6 x 5 x 4 mm with internal vascularity and posterior shadowing. IMPRESSION: 1. Suspicious 6 mm right breast mass at 9:00, 7 cm from the nipple which likely corresponds to the mammographic finding. 2. Ultrasound-guided right breast biopsy recommended. BI-RADS category 4, suspicious findings. Reviewed, dictated and finalized at location C. INE PRINTER IMPRESSION: 1. Suspicious 6 mm right breast mass at 9:00, 7 cm from the nipple which likely corresponds to the mammographic finding. 2. Ultrasound-guided right breast biopsy recommended. BI-RADS category 4, suspicious findings.
--- OUTSIDE RECORDS SUMMARY | 2025-03-14 09:03 | XMS_ITS | Clinical Summary ---
Author Organization [facility] D Address [address] [place] [id number] Care Team Providers Care Tack Picker Name Role Phone Edu Miller MD Primary Care Provider + [phone] Allergies Active Allergy Reactions Criticality Noted Date Comments Pravastatin Other (See comments) 10/24/2024 Medications lisinopriL (PRINIVIL,ZESTR IL) 10 mg tablet Take 1 tablet (10 mg total) by mouth daily 0 Active levothyroxine (SYNTHROID) 100 mcg tablet Take 1 tablet (100 mcg total) by mouth cook seafood before breakfast 1 Active multivitamin with minerals [...] (07/30/2020): Added automatically from request for surgery [id number] Palpitations 12/07/2019 09/03/2024 Immunizations Immunization Administration Dates Next Due Influenza, Quadrivalent, Split, Intramuscular ,02/14/2015 Influenza, Quadrivalent, Spl it, Preservative Free, Intramuscular 03/13/2020,02/23/2018 Influenza, Trivalent, IM (MDV) 01/06/2017 [employer] (J&J) SARS-CoV-2 Vaccination 08/07/2020 Pneumococcal Conjugate PCV [...] on file 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 Gender Identity Not on file Sexual Orientation [...] Tdap) 11/28/2024 11/28/2014 Covid-19 Vaccine (2 - season) 2024 08/07/2020 Influenza Vaccine (#1) 2024 [...] CDT) Hep C Ab Nonreactive Nonreactive [facility] Comment: Interpretive Data Nonreactive: Antibodies to [...] - GENERA L ORDERABLES Final Result [facility] [address] Department [place] [address] from Last 3 Months or Most Recently Relevant to Health Maintenance Insurance CIGNA CIGNA CIGNA Care Teams Tack Picker Relationship Specialty Start Date End Date Edu Miller MD [address] [place] [address] PCP - General Internal Medicine 05/12/20
--- OUTSIDE RECORDS SUMMARY | 2025-03-14 09:03 | XMS_ITS | Clinical Summary ---
Author Organization [facility] Address [address] [place] [address] Care Team Providers Care Enterprise Sales Executive Name Role Phone Edu Miller MD Primary Care Provider [phone] Josse Newsome MD Unavailable Allergies No known [...] mouth 2 (two) times daily. Active biotin 02989 MCG tablet Take 5,000 mcg by mouth [...] 2) 12/28/2019 11/02/2019 COVID-19 Vaccine (1 - 2024-2 6 season) 2024 Influenza Adult (#1) 2025 RSV [...] this topic Insurance CIGNA CIGNA Care Teams Enterprise Sales Executive Relationship Specialty Start Date End Date Edu Miller MD [address] [place] [id number] PCP - General INTERNAL MEDICINE 11/27/19 Josse Newsome MD [place] [address] Consulting Physician CLINICAL CARDIAC ELECTROPHYSIOLOGY 11/27/19
--- OUTSIDE RECORDS SUMMARY | 2025-03-14 09:03 | XMS_ITS | Patient Health Record ---
Author Organization [facility] Address [address] [place] [address] Care Team Providers Care Software Test Specialist Name Role Phone Deric Hollins Unavailable [phone] Reason For Referral No Information Medications Medication [...] 09/16/2023 Active Stool Softener *Pick strength-form from NicOx for eRX* 09/16/2023 Active Immunizations Vaccine Route Administration Date Status Comme nts Influenza virus vaccine, quadrivalent (IIV4), split virus, 0.25 mL dosage Unknown 02/14/2015 Administered Influenza virus vaccine, quadrivalent (IIV4), split virus, 0.25 mL dosage Unknown 01/19/2016 Administered Influenza, seasonal, injecta ble, preservative free, 3 yrs and above Unknown 01/06/2017 Administered Ortiz Covid-19 Vaccine Unknown 08/07/2020 Administere d Novel [id number], preservative free Unknown 02/23/2018 Administered Novel [id number], preservative free Unknown 03/13/2020 Administered Pneumococcal conjugate [...] Insured Coverage Start Date Coverage End Date [facility] [address] [place] [address] [id number] SANDI HUSAIN Spouse - patient is the spouse of the insured Medical (General) History Surgical History Surgery Date(Month/Year) Removal of gallbladder (48139) Hysterectomy (54758)
== END 2025-03-14 08:49 | disposition home or self-care (01) ==
PROVIDERS: PCP Internal Medicine; Visit Provider Internal Medicine
DX: R92.8 Other abnormal and inconclusive findings on diagnostic imaging of breast (principal)
CPT/HCPCS: 76642; 77061; 77065; G0279